=== PATIENT | male | born 1965 | race Caucasian/White ===

== ENCOUNTER 2020-07-23 10:32 | Day surgery (SDC) | payer BC, SELFPAY ==
[2020-07-16 17:49] VITALS: BMI 36.9
[2020-07-23 11:17] VITALS: BP 161/96; PULSE 68; RESP 18; TEMP 36.8; O2SAT 98
[2020-07-23] MEDS: Gentamicin Sulfate/NaCl 80 MG/100 ML PIGGYBACK 100 MG IV (11:57)
--- NOTE | 2020-07-23 12:16 | HO.ANESPROP2 ---
[facility] Past Medical History Medical History (Updated 07/16/20 @ 17:49 by Diane Acuna RN) Arthritis Atrial fibrillation Elevated cholesterol Hypertension Nephrolithiasis VONNIE (obstructive sleep apnea) Unstable angina Surgical History Surgical History (Updated 07/16/20 @ 17:29 by Diane Acuna RN) History of total right knee replacement (TKR) (2019) S/P cholecystectomy S/P left knee arthroscopy Social History Social History Smoking Status: Never smoker Second Hand Smoke Exposure: No Use of substances other than those prescribed or required for medical reasons: No Advance Directives: No Advance Directives Information Provided: No Advance Directives on File: No Recently lost weight without trying: No Meds Allergies Allergy/AdvReac Type Severity Reaction Status Date / Time No Known Allergies Allergy Unverified 03/29/20 16:31 [No Known Allergies*] pollen Allergy Unknown Uncoded 07/05/19 00:00 Home Medications Medication Instructions Recorded Confirmed Type amlodipine 10 mg PO DAILY 07/17/20 07/17/20 History irbesartan 300 mg PO DAILY 07/17/20 07/17/20 History metoprolol succinate 50 mg PO DAILY 07/17/20 07/17/20 History Exam Exam Date and Time: July 23, 2020 1216 Height,Weight and Vital Signs: Height 6 ft 1 in Weight 127.006 kg Last Vital Signs Temp 98.2 F 07/23/20 11:17 Pulse 68 07/23/20 11:17 Resp 18 07/23/20 11:17 BP 161/96 H 07/23/20 11:17 Pulse Ox 98 07/23/20 11:17 Airway Mallampati Class: II TM Dist: >3cm Neck ROM: Full Heart: RRR Lungs: CTA BL Assessment and Plan Assessment Anesthesia Assessment: Anesthesia Plan Discussed and Chart Reviewed Final Anesthetic Review NPO: Yes (Sip water with meds) ASA Class: III Final Preanesthetic Review: No Changes in Pt Med Stat and Consent Obtained/Reviewed Patient Risk: Intermediate Procedure Risk: Intermediate Anesthetic Plan Anesthetic Plan: MAC: Disposition: Standard PACU
[2020-07-23 13:12] VITALS: BP 111/62; PULSE 66; RESP 16; TEMP 36.6; O2SAT 93
--- NOTE | 2020-07-23 13:16 | PM.OP ---
Brief Operative Note Date of Service: 07/23/20 Pre-op diagnosis: Screening Post-op diagnosis: other (Diverticulosis, Small internal hemorrhoids) Procedure: Colonoscopy to cecum and TI Surgeon: Maxi Hooker Anesthesia: MAC Estimated blood loss (mL): 0 Pathology: none sent Condition: stable Disposition: PACU
[2020-07-23 13:27] VITALS: BP 113/65; PULSE 64; RESP 18; TEMP 37.1; O2SAT 98
--- NOTE | 2020-07-23 13:45 | HO.POSTANES ---
Post Anesthesia Evaluation Post Anesthesia Evaluation Vital Signs: Vital Signs Temp Pulse Resp BP Pulse Ox 07/23/20 13:27 98.7 F 64 18 113/65 98 07/23/20 13:12 97.8 F 66 16 111/62 93 07/23/20 11:17 98.2 F 68 18 161/96 H 98 Anesthesia: Monitored Mental Status: Awake Pain Control: Satisfactory Nausea/Vomiting: None Hydration: Adequate Anesthesia-Related Issues: No Anes. Related Issues
--- NOTE | 2020-07-23 17:31 | OP_ITS ---
SURGEON: Maxi Hooker MD INDICATIONS: The patient presents for evaluation of colorectal cancer screening. Full consent has been obtained from him for this, including risks of bleeding and perforation. PREOPERATIVE DIAGNOSIS: Colorectal cancer screening. POSTOPERATIVE DIAGNOSIS: PROCEDURE PERFORMED: Colonoscopy to cecum and terminal ileum. ESTIMATED BLOOD LOSS: COMPLICATIONS: ANESTHESIA: Monitored anesthesia care. ASSISTANTS: SPECIMENS: POSTOPERATIVE DIAGNOSES: Colorectal cancer screening, sigmoid diverticulosis, and internal hemorrhoids. DESCRIPTION OF PROCEDURE: The patient was placed in the left lateral decubitus position. The digital rectal exam revealed no abnormalities. The Olympus video pediatric colonoscope was entered into the rectum and advanced easily to the cecum. Once in the cecum, I did identify normal-appearing cecal pouch with appendiceal orifice and a normal-appearing ileocecal valve. The terminal ileum was cannulated and appeared normal. Scope was withdrawn back in the colon. The entire cecum and ileocecal valve appeared normal. The scope was then slowly withdrawn assessing all mucosal surfaces carefully. Preparation was excellent. I did not visualize any sign of polyps, colitis, or angiodysplasia. There was a mild amount of sigmoid diverticulosis. In the rectum, scope was retroflexed visualizing internal hemorrhoids, but no other pathology. The rectal mucosa appeared normal. The scope was straightened and withdrawn from the patient. He tolerated the procedure well and was returned to the recovery area in stable condition. IMPRESSION: Sigmoid diverticulosis and 2 small internal hemorrhoids. PLAN: Given the negative colonoscopy and negative family history, I would recommend a repeat colonoscopy in 10 years for further screening. He will otherwise see me on a p.r.n. basis. He did receive preprocedure antibiotics for prophylaxis in regard to his recent knee replacement and was given a prescription for amoxicillin to use later today. MD MARCELINO Quinteros/BRITTANY / [phone]
== END 2020-07-23 14:04 | disposition home or self-care (01) ==
PROVIDERS: PCP Internal Medicine; Visit Provider Internal Medicine
PROC: 0DJD8ZZ Inspection of Lower Intestinal Tract, Via Natural or Artificial Opening Endoscopic (ICD-10-PCS; CPT 45378; principal; 2020-07-23 12:00)
DX: Z12.11 Encounter for screening for malignant neoplasm of colon (principal); K57.30 Diverticulosis of large intestine without perforation or abscess without bleeding; K64.8 Other hemorrhoids; I10 Essential (primary) hypertension; G47.33 Obstructive sleep apnea (adult) (pediatric); Z90.49 Acquired absence of other specified parts of digestive tract; Z96.651 Presence of right artificial knee joint; Z99.89 Dependence on other enabling machines and devices; Z79.899 Other long term (current) drug therapy
CPT/HCPCS: 45378; J0290; J1580

== ENCOUNTER 2020-12-24 14:04 | Emergency (ER) | payer BC, SELFPAY ==
--- NOTE | ~2020-12-24 | CT_ITS ---
EXAMINATION: CT abdomen pelvis wo con CLINICAL INFORMATION: Reason for Exam r flank pain wioth hx of kidney stones COMPARISON: Prior study 2019 TECHNIQUE: Multidetector volumetric imaging was performed from the superior aspect of the liver through the pubic symphysis , noncontrasted study. Sagittal and coronal reformatted images were obtained on the technologist's workstation. This CT examination was performed using dose optimization techniques as appropriate, variously including the following: *Automated exposure control *Adjustment of mA and/or kV according to patient size (this includes techniques or standardized protocols for targeted exams where dose is matched to indication/reason for exam; i.e. extremities or head) *Use of iterative reconstruction technique DLP: 1000 mGy-cm FINDINGS: LOWER THORAX: Included lung bases are clear. HEPATOBILIARY: Heterogeneously hypodense liver probably hepatic steatosis. Evaluation of the liver is limited on noncontrasted study. GALLBLADDER: Gallbladder has been removed. SPLEEN: Spleen is enlarged 16 x 8 cm. PANCREAS: No focal mass or ductal dilatation. STOMACH AND GASTROINTESTINAL TRACT: Stomach is grossly unremarkable. There is no bowel distention or thickening. No CT evidence of appendicitis. ADRENALS: No adrenal nodules. KIDNEYS/URETERS: There is mild right renal hydronephrosis and hydroureter secondary to 3 mm stone lodged at the right ureterovesicular junction. Minimal perinephric fat stranding and haziness around the ureter might be obstructive uropathy. Versus nephritis. Left kidney is normal. There is additional 4 mm nonobstructing stone in the middle calyx right kidney. Cyst protruding from the middle pole left kidney measures 1.7 cm. URINARY BLADDER: Partially decompressed. PELVIC VISCERA: Unremarkable PERITONEUM: No free air or fluid. LYMPH NODES: No lymphadenopathy. VASCULAR:Abdominal aorta normal in size, no aneurysm found. BONES, ABDOMINAL WALL AND SOFT TISSUES: Age-appropriate changes of the spine and skeletal system, no destructive osteolytic or osteosclerotic bone lesion found CT/CT abdomen pelvis wo con IMPRESSION: 1. Mild to moderate right renal hydronephrosis and hydroureter secondary to 3 mm partially obstructing stone in the distal right ureter at the ureterovesicular junction. Minimal perinephric fat stranding and fat stranding around the ureter might be obstructive uropathy versus nephritis. 2. There is additional nonobstructing 4 mm stone middle calyx right kidney and a simple cyst left kidney. 3. Diffusely hypodense liver suggesting hepatic steatosis. 4. Splenomegaly. Spleen 16 cm.
[2020-12-24 14:54] VITALS: BP 148/68; PULSE 71; RESP 18; TEMP 36.8; O2SAT 96; BMI 36.9
[2020-12-24 15:44] VITALS: BP 166/92; PULSE 70; RESP 20; TEMP 36.5; O2SAT 97
[2020-12-24 15:48] LABS: Basophils Percent Auto 0.1 % (0-2); MANUAL DIFF FLAG SCAN; Mean Corpuscular HGB Conc 35.2 g/dl (31.0-36.0); Mean Corpuscular Hemoglobin 29.2 pg (27.0-33.0); PLT CLUMP 1; SCAN SMEAR FLAG 1
[2020-12-24 15:50] LABS: Eosinophils Absolute Auto 0.1 X10*3/uL (0.0-0.4); Glucose Urine UA NEG (NEG); Hematocrit 41.5 % (42-52); Hemoglobin 14.6 g/dl (14.0-18.0); Imm Gran Abs Auto 0.03 X10*3/uL (0.00-0.03); Imm Gran Pct Auto 0.3 % (0.0-0.4); Leukocyte Esterase Urine NEG (NEG); Lymphocytes Absolute Auto 1.1 X10*3/uL (1.2-4.9); Lymphocytes Percent Auto 12.2 % (20-40); Mean Platelet Volume 10.3 fL (9.4-12.4); Monocytes Absolute Auto 0.7 X10*3/uL (0.1-1.2); Monocytes Percent Auto 7.6 % (2-11); Neutrophils Absolute Auto 7.2 X10*3/uL (2.0-8.3); Neutrophils Percent Auto 78.8 % (45-73); Nitrite Urine NEG (NEG); Platelet Count 132 X10*3/uL (160-400); Red Cell Distribution Width 12.9 % (11.0-16.0); Specific Gravity - Urine <= 1.005 (1.005-1.025); Urine Blood 3+ (NEG); Urine Ketones NEG (NEG); Urine Protein NEG (NEG-TRACE); White Blood Count 9.1 X10*3/uL (4.8-10.8)
--- NOTE | 2020-12-24 15:50 | PC.NURSE ---
Pt alert and oriented, vss. Pt states he has hx if kidney stones and reports passing one last night however he is still having intense pain. Labs obtained, pt resting quietly, Daughter at bedside.
[2020-12-24 15:52] LABS: Appearance Urine CLEAR; Color Urine YELLOW
[2020-12-24 16:05] LABS: Anion Gap 14 (12-20); Blood Urea Nitrogen 23 mg/dL (9-16); Calcium 9.4 mg/dL (8.4-10.2); Carbon Dioxide 25 mmol/L (22-29); Chloride 104 mmol/L (96-108); Estimated Glomerular Filt Rate > 60; Glucose Random 92 mg/dL (60-115); Potassium 3.9 mmol/L (3.3-5.1); Sodium 139 mmol/L (135-145)
[2020-12-24 16:17] LABS: UACC CULT YES
--- NOTE | 2020-12-24 16:17 | ED_ITS ---
HPI - Male Genitourinary General Chief complaint: Urogenital-Male Stated complaint: kidney stones Time Seen by Provider: 12/24/20 15:42 Source: patient Mode of arrival: ambulatory Limitations: no limitations History of Present Illness HPI Narrative: Patient with history of kidney stone complaining of pain in the right flank area since yesterday off and on getting worse with nausea patient took Toradol and Flomax at home no hematuria no dysuria no fever or chills Related Data Home Medications Medication Instructions Recorded Confirmed amlodipine 10 mg PO DAILY 07/17/20 07/17/20 irbesartan 300 mg PO DAILY 07/17/20 07/17/20 metoprolol succinate 50 mg PO DAILY 07/17/20 07/17/20 Previous Rx's Medication Instructions Recorded oxycodone 5 mg PO Q6H PRN #20 tab 12/24/20 tamsulosin [Flomax] 0.4 mg PO DAILY #14 cap 12/24/20 Allergies Allergy/AdvReac Type Severity Reaction Status Date / Time No Known Allergies Allergy Unverified 03/29/20 16:31 [No Known Allergies*] pollen Allergy Unknown Uncoded 07/05/19 00:00 Review of Systems Review of Systems: Constitutional : No Weight loss, No Fever, No Chills ENT/Mouth : No sore throat, No Rhinorrhea Eyes: No Eye Pain, No Swelling Cardiovascular : No Chest Pain, no palpitations Respiratory : No Cough, No Sputum, no shortness of breath Gastrointestinal : +Nausea, No Vomiting, No Diarrhea, No abdominal Pain, no black stools Genitourinary : No Dysuria, No Urinary Frequency Musculoskeletal : No joint pain, No Myalgias, No Joint Swelling Skin : No Skin Lesions, No rash Neuro : No Weakness, No Numbness, No Dizziness, No Headache Psych : No Anxiety/Panic, No Depression Heme/Lymph: No Bruising, No Lymphadenopathy Endocrine : No Polyuria, No Polydipsia All other systems reviewed and are negative PMFSH Past Medical History Medical History Arthritis Atrial fibrillation Elevated cholesterol Hypertension Nephrolithiasis VONNIE (obstructive sleep apnea) Unstable angina Surgical History History of total right knee replacement (TKR) (2018) S/P cholecystectomy S/P left knee arthroscopy Social History Social History Second Hand Smoke Exposure: No Advance Directives: No Advance Directives Information Provided: Yes Physical Exam Vital Signs: Vital Signs: Last Vital Signs Temp 97.7 F 12/24/20 15:44 Pulse 72 12/24/20 17:16 Resp 18 12/24/20 17:16 BP 144/75 H 12/24/20 17:16 Pulse Ox 94 12/24/20 17:16 Body Mass Index 36.9 Appearance: Alert. Oriented X3. No acute distress. Eyes: PERRLA, No Nystagmus ENT: Pharynx normal. Oral Mucosa moist Neck: Normal inspection. Neck supple. CVS: Normal heart rate and rhythm. Pulses normal. Respiratory: No respiratory distress. Equal air entry bilateral, no wheezing/rales/rhonchi Abdomen: Soft and nontender. Bowel sounds are present, no mass palpable, R CVA tenderness ++ Skin: Skin warm and dry. Normal skin color. Normal skin turgor. Extremities: No lower extremity edema. No calf tenderness Neuro: Oriented X 3. No motor deficit. No sensory deficit MDM - Male Genitourinary MDM Narrative Medical decision making narrative: Patient with 3 mm right UVJ stone with moderate hydronephrosis patient feeling much better after morphine will disch arge patient home on oxycodone advised follow-up with urologist Lab Data Attestation: I reviewed the patient's lab results. Result diagrams: 12/24/20 15:38 12/24/20 15:38 Labs: Lab Results 12/24/20 12/24/20 12/24/20 Range/Units 15:38 15:38 15:38 WBC 9.1 (4.8-10.8) X10*3/uL RBC 5.00 (4.60-5.80) X10*6/uL Hgb 14.6 (14.0-18.0) g/dl Hct 41.5 L (42-52) % MCV 83.0 (80-98) fL MCH 29.2 (27.0-33.0) pg MCHC 35.2 (31.0-36.0) g/dl RDW 12.9 (11.0-16.0) % Plt Count 132 L (160-400) X10*3/uL MPV 10.3 (9.4-12.4) fL Immature Gran % (Auto) 0.3 (0.0-0.4) % Neut % (Auto) 78.8 H (45-73) % Lymph % (Auto) 12.2 L (20-40) % [place] % (Auto) 7.6 (2-11) % Eos % (Auto) 1.0 (0-4) % Baso % (Auto) 0.1 (0-2) % Lymph # (Auto) 1.1 L (1.2-4.9) X10*3/uL [place] # (Auto) 0.7 (0.1-1.2) X10*3/uL Eos # (Auto) 0.1 (0.0-0.4) X10*3/uL Baso # (Auto) 0.0 (0.0-0.2) X10*3/uL Abs Immat Gran (auto) 0.03 (0.00-0.03) X10*3/uL Absolute Neuts (auto) 7.2 (2.0-8.3) X10*3/uL Absolute Nucleated RBC 0.000 (0.0-0.012) X10*3/uL Nucleated RBC % (auto) 0.0 (0.0-0.2) /100WBC Smear Tech's Comments VERIFIED Sodium 139 (135-145) mmol/L Potassium 3.9 (3.3-5.1) mmol/L Chloride 104 (96-108) mmol/L Carbon Dioxide 25 (22-29) mmol/L Anion Gap 14 (12-20) BUN 23 H (9-16) mg/dL Creatinine 1.11 (0.5-1.4) mg/dL Estim Creat Clear Calc 105.0 Estimated GFR > 60 Random Glucose 92 (60-115) mg/dL Calcium 9.4 (8.4-10.2) mg/dL Urine Color YELLOW Urine Appearance CLEAR Urine pH 6.0 (5.0-8.0) Ur Specific [place] <= 1.005 (1.005-1.025) Urine Protein NEG (NEG-TRACE) MG/DL Urine Glucose (UA) NEG (NEG) MG/DL Urine Ketones NEG (NEG) MG/DL Urine Blood 3+ H (NEG) Urine Nitrite NEG (NEG) Ur Leukocyte Esterase NEG (NEG) Urine RBC 10-14 H (0) /HPF Urine WBC 5-9 H (0-4) /HPF Ur Squamous Epith Cells NONE /LPF Urine Bacteria NONE /LPF Discharge Plan Discharge Clinical Impression: Kidney stone on right side Patient Disposition: Home, Self-Care Instructions: Kidney Stones (ED) Additional Instructions: Drink plenty of fluids Take pain medication as advised and follow with urologist Prescriptions: New oxycodone 5 mg tablet 5 mg PO Q6H PRN (Reason: Pain, Moderate) Qty: 20 RF: 0 tamsulosin [Flomax] 0.4 mg capsule 0.4 mg PO DAILY Qty: 14 RF: 0 No Action metoprolol succinate 50 mg Tablet Extended Release 24 Hr 50 mg PO DAILY RF: 0 irbesartan 300 mg Tablet 300 mg PO DAILY RF: 0 amlodipine 10 mg Tablet 10 mg PO DAILY RF: 0 Referrals: Allen Yo MD [Physician] - 5 days
[2020-12-24 16:29] LABS: SLIDE REVIEW VERIFIED
[2020-12-24] MEDS: ondansetron HCL 4 MG/2 ML VIAL IVPUSH (17:07)
[2020-12-24] MEDS: Morphine Sulfate 4 MG/ML CARTRIDGE IVPUSH (17:07)
[2020-12-24 17:16] VITALS: BP 144/75; PULSE 72; RESP 18; O2SAT 94
[2020-12-24] MEDS: 0.9 % Sodium Chloride 1,000 ML 999 ML IVCONT (17:16)
[2020-12-24] MEDS: Morphine Sulfate 2 MG/ML CARTRIDGE IVPUSH (18:59)
== END 2020-12-24 20:00 | disposition home or self-care (01) ==
PROVIDERS: Emergency Provider Internal Medicine; PCP Internal Medicine
DX: N20.0 Calculus of kidney (principal)
CPT/HCPCS: 36415; 74176; 80048; 81001; 85025; 87086; 96361; 96374; 96375; 96376; 99284; J2270; J2405

== ENCOUNTER → 2021-01-01 15:39 | Outpatient (BNVA) | payer BC, SELFPAY | PROVIDERS: PCP Internal Medicine; Visit Provider Urology ==

== ENCOUNTER 2021-02-27 07:37 | Day surgery (SDC) | payer BC, SELFPAY ==
[2021-02-20 14:02] VITALS: BMI 36.9
[2021-02-20 15:24] VITALS: BMI 36.9
--- NOTE | 2021-02-26 09:36 | HO.ANESPROP2 ---
Documented by User: Leidy Todd NP 02/26/21 09:37 HPI - Anesthesia Eval Consult details Narrative: 55yo M for Right Lithotripsy ESW No previous ESWL on record PMFSH Active Problems Active Problems: All Active Problems (Updated 02/20/21 @ 15:07 by Peace Hernandez) Nephrolithiasis (Acute) Past Medical History Medical History (Updated 02/20/21 @ 15:07 by Pecae Hernandez RN) Arthritis COVID-19 vaccine series completed Elevated cholesterol HTN (hypertension) Nephrolithiasis On beta princess at home VNONIE (obstructive sleep apnea) Surgical History Surgical History History of total right knee replacement (TKR) Hx of colonoscopy S/P cholecystectomy S/P left knee arthroscopy Social History Social History Are you a primary foster care therapist to a significant other at home: No Do you presently have visiting nurse or other home services: No Patient Tobacco Use Status: Never used Tobacco Second Hand Smoke Exposure: No Use of substances other than those prescribed or required for medical reasons: No Have you been hit, kicked, punched, or otherwise hurt by someone within the past year? If so, by whom?: No Are you DNR?: No Advance Directives: No Advance Directives Information Provided: No Advance Directives on File: No Recently lost weight without trying: No Eating poorly because of decreased appetite: No Nutrition Risks: No Nutritional Risk Meds Allergies Allergy/AdvReac Type Severity Reaction Status Date / Time pollen Allergy Unknown Unknown Uncoded 02/20/21 13:07 Home Medications Medication Instructions Recorded Confirmed Last Taken Type amlodipine 10 mg tablet 10 mg PO DAILY 07/17/20 02/20/21 02/27/21 History irbesartan 300 mg tablet 300 mg PO DAILY 07/17/20 02/20/21 02/27/21 History metoprolol succinate 50 mg 50 mg PO DAILY 07/17/20 02/20/21 02/27/21 History tablet,extended release 24 hr Exam Exam Date and Time: February 26, 2021 0936 Height,Weight and Vital Signs: Height 6 ft 1 in Weight 127.006 kg Pertinent Lab Results Pertinent Lab Results: Laboratory Tests 12/24/20 12/24/20 15:38 15:38 WBC 9.1 Hgb 14.6 Hct 41.5 L Plt Count 132 L Sodium 139 Potassium 3.9 Chloride 104 Carbon Dioxide 25 BUN 23 H Creatinine 1.11 Assessment and Plan Assessment Anesthesia Assessment: Chart Reviewed Documented by User: Shanita Alvarez MD 02/27/21 10:07 [facility] Past Medical History Medical History (Updated 02/20/21 @ 15:07 by Peace Hernandez RN) Arthritis COVID-19 vaccine series completed Elevated cholesterol HTN (hypertension) Nephrolithiasis On beta princess at home VONNIE (obstructive sleep apnea) Functional capacity: independent ambulation Family History Family history of problems with anesthesia: No Surgical History Surgical History History of total right knee replacement (TKR) Hx of colonoscopy S/P cholecystectomy S/P left knee arthroscopy History of Problems with Anesthesia: No Social History Social History Are you a primary foster care therapist to a significant other at home: No Do you presently have visiting nurse or other home services: No Patient Tobacco Use Status: Never used Tobacco Second Hand Smoke Exposure: No Use of substances other than those prescribed or required for medical reasons: No Have you been hit, kicked, punched, or otherwise hurt by someone within the past year? If so, by whom?: No Are you DNR?: No Advance Directives: No Advance Directives Information Provided: No Advance Directives on File: No Recently lost weight without trying: No Eating poorly because of decreased appetite: No Nutrition Risks: No Nutritional Risk Meds Allergies Allergy/AdvReac Type Severity Reaction Status Date / Time pollen Allergy Unknown Unknown Uncoded 02/20/21 13:07 Home Medications Medication Instructions Recorded Confirmed Last Taken Type amlodipine 10 mg tablet 10 mg PO DAILY 07/17/20 02/20/21 02/27/21 History irbesartan 300 mg tablet 300 mg PO DAILY 07/17/20 02/20/21 02/27/21 History metoprolol succinate 50 mg 50 mg PO DAILY 07/17/20 02/20/21 02/27/21 History tablet,extended release 24 hr Exam Airway Mallampati Class: IV TM Dist: >3cm Neck ROM: Full Heart: RRR Lungs: CTA Assessment and Plan Final Anesthetic Review Family History of Problems with Anesthesia: No History of Problems with Anesthesia: No
[2021-02-27] VITALS (7 sets, daily range): BP systolic 112–154; BP diastolic 62–81; PULSE 57–67; RESP 16; TEMP 36.3; O2SAT 92–95
--- NOTE | ~2021-02-27 | XR_ITS ---
EXAMINATION: XR ABDOMEN KUB CLINICAL INDICATION: Nephrolithiasis. COMPARISON: Most recent CT abdomen/pelvis dated 12/24/2020 TECHNIQUE: AP views of the abdomen. FINDINGS: Multiple bilateral pelvic phleboliths are redemonstrated. The previously seen right ureterovesicular junction stone is not appreciated on plain radiographs. The previously seen right midpole renal stone is obscured by overlying bowel gas. Nonobstructive bowel gas pattern. Right upper quadrant surgical clips. No acute osseous abnormality. XR/XR KUB IMPRESSION: The previously seen right ureterovesicular junction stone is not appreciated on plain radiographs. Pelvic phleboliths appear unchanged. Previously seen right midpole renal stone obscured by overlying bowel gas.
[2021-02-27] MEDS: Lactated Ringers 1,000 ML 100 ML IVCONT (09:32)
[2021-02-27] MEDS: Acetaminophen 325 MG TABLET 650 MG PO (09:33)
--- NOTE | 2021-02-27 10:56 | MHC.SHP ---
Pre-Procedural Eval Section A Date of Service: 02/27/21 Section B Chief Complaint: kidney stone Details of Present Illness: right renal stone Relevant Social History: None Present Medications: see Short Stay Collaborative assessment Medical History: No relevant PMH Allergies: Allergies Allergy/AdvReac Type Severity Reaction Status Date / Time pollen Allergy Unknown Unknown Uncoded 02/20/21 13:07 Review of Systems Sugical H&P ROS: Negative: Constitution, Cardiovascular, Respiratory, Neurological, Psychiatric, Hem-Onc, Allergic/Immunologic, Gastrointestinal, Genitourinary, Musculoskeletal, Integumentary, Endocrine and Eyes/Ears/Nose/Throat Exam Surgical H&P Exam: Normal: HEENT, Normal: Heart, Normal: Lungs, Normal: Extremities, Normal: Abdomen, Normal: Skin and Normal: Neurological Plan Diagnosis/Plan: Unchanged (right ESWL) I have reviewed the history and physical and performed a pertinent physical examination on my patient. No changes have occurred unless specified.
--- NOTE | 2021-02-27 11:07 | W.PM.OPN ---
Operative Note Operative Note Date of Service: 02/27/21 Narrative: PreOperative Diagnosis: right Renal stones Post Operative Diagnosis: right Renal stones Procedure: right ESWL Surgeon: Dr Allen Yo Anesthesia: mac/sedation Indications for procedure: They understand ESWL may be a staged procedure and subsequent intervention may be required based on imaging after ESWL. They also understand there is a risk of bleeding, infection, damage to adjacent organs. 4 mm right side Procedure: After informed consent was verified the patient was brought to the operating room and placed in a supine position. Anesthesia was performed per protocol. Safety pause time-out was performed. Imaging was in the room and laterality confirmed. ESWL was performed. The 1st 500 shocks were performed at 60 hertz. These were performed with increasing power. Once maximum power was reached the rate was increased to 180 hertz. A total of 2500 shocks were given. Fluoroscopy showed stone disintegration. They tolerated procedure well and was transferred to the recovery area upon completion.
--- NOTE | 2021-02-27 13:28 | HO.POSTANES ---
Post Anesthesia Evaluation Post Anesthesia Evaluation Vital Signs: Vital Signs Temp Pulse Resp BP Pulse Ox 02/27/21 12:20 57 16 129/74 95 02/27/21 12:10 62 16 129/72 94 02/27/21 11:55 60 16 112/65 93 02/27/21 11:50 60 16 112/62 92 02/27/21 11:45 60 16 113/68 92 02/27/21 11:40 97.3 F 65 16 116/65 93 02/27/21 09:19 97.3 F 67 16 154/81 H 95 Anesthesia: General LMA Mental Status: Awake Pain Control: Satisfactory Nausea/Vomiting: None Hydration: Adequate Anesthesia-Related Issues: No Anes. Related Issues
== END 2021-02-27 12:50 | disposition home or self-care (01) ==
PROVIDERS: PCP Internal Medicine; Visit Provider Urology
PROC: (CPT 50590; principal; 2021-02-27 09:30)
DX: N20.0 Calculus of kidney (principal); Z87.442 Personal history of urinary calculi; I10 Essential (primary) hypertension; G47.33 Obstructive sleep apnea (adult) (pediatric); Z79.899 Other long term (current) drug therapy
CPT/HCPCS: 50590; 74018; J1100; J2250; J2405; J3010

== ENCOUNTER 2021-04-10 15:52 | Outpatient (REF) | payer BC, SELFPAY ==
--- NOTE | ~2021-04-10 | US_ITS ---
EXAMINATION: US RETROPERITONEAL LIMITED (RENAL ONLY) CLINICAL INFORMATION: Calculus of kidney. COMPARISON: KUB 02/27/2021. CT abdomen and pelvis 12/24/2020. TECHNIQUE: Real-time imaging of the kidneys. FINDINGS: RIGHT KIDNEY: 13.4 x 5.3 x 8.4 cm (SAG x AP x TRV). The kidney is normal in size, contour, and echogenicity. Renal cortical thickness is normal. There is a 2.1 x 1.5 x 1.4 cm cyst in the midpole. No renal calculi or hydronephrosis. The small stone in the upper pole the right kidney seen on CT December 2020 is not appreciated on ultrasound. LEFT KIDNEY: 13.7 x 6.8 x 6.6 cm (SAG x AP x TRV). The kidney is normal in size, contour, and echogenicity. Renal cortical thickness is normal. There is a 2.2 x 2.9 x 1.7 cm hypoechoic lesion in the lateral upper to mid left kidney. Differential would include a solid mass and complex cyst. Follow-up CT or MRI of the kidneys with and without contrast is recommended. No calculi. No hydronephrosis. The liver is echogenic. US/US renal BI IMPRESSION: No stone seen. 2.2 x 1.5 x 1.4 cm hypoechoic indeterminate lesion exophytic to the lateral upper to mid pole of the left kidney. It is uncertain whether this represents a solid lesion or complex cyst. CT or MRI of the kidneys with and without contrast is recommended. Small simple right renal cyst.
== END 2021-04-10 15:53 | disposition home or self-care (01) ==
LOC: HO.US 15:52
PROVIDERS: Visit Provider Urology
DX: N20.0 Calculus of kidney (principal)
CPT/HCPCS: 76775

== ENCOUNTER 2021-05-15 10:04 | Emergency (ER) | payer BC, SELFPAY ==
--- NOTE | ~2021-05-15 | CT_ITS ---
EXAMINATION: CT ANGIOGRAM CHEST CLINICAL INFORMATION: Chest pain radiating to back. Rule out dissection. COMPARISON: Previous CTA of the chest July 2014 and chest x-ray from earlier the same day TECHNIQUE: Multiple axial images were obtained through the chest after the administration of 70 mL of Omnipaque 350 intravenous contrast. Extensive vascular post-processing including two-dimensional and three-dimensional reformatted images were created and reviewed on an independent workstation. This CT examination was performed using dose optimization techniques as appropriate, variously including the following: *Automated exposure control *Adjustment of mA and/or kV according to patient size (this includes techniques or standardized protocols for targeted exams where dose is matched to indication/reason for exam; i.e. extremities or head) *Use of iterative reconstruction technique DLP: 460 mGy-cm FINDINGS: Evaluation of the ascending thoracic aorta is limited due to cardiac motion and streak artifact. The thoracic aorta is normal in caliber. No aneurysm or dissection is. The great vessel origins appear patent and normal in caliber. The heart is slightly enlarged. There is no pericardial effusion. There is mild coronary artery calcification. The pulmonary arteries appear patent. There is shotty mediastinal and bilateral hilar lymphadenopathy. No enlarged lymph nodes are seen. Thyroid gland is unremarkable. The lungs are clear. There is no pleural effusion or pneumothorax. No chest wall mass or enlarged axillary lymph nodes are seen. The liver may be low in attenuation. The liver appears enlarged. The spleen is slightly enlarged measuring 14 cm in length. There is a 1.5 cm enhancing lesion in the upper pole of the left kidney. Appearance is worrisome for neoplasm. The gallbladder has been removed. There are degenerative changes of the spine. Bony structures are otherwise unremarkable. CT/CT angio chest aorta IMPRESSION: Evaluation of the ascending thoracic aorta is slightly limited due to artifact from cardiac motion. No aneurysm or dissection seen. No pulmonary embolism. Slightly enlarged heart and mild coronary artery calcification. Shotty mediastinal and bilateral hilar lymphadenopathy. 1.5 cm enhancing left renal lesion worrisome for neoplasm. Hepatosplenomegaly. Probable fatty liver.
--- NOTE | ~2021-05-15 | XR_ITS ---
EXAMINATION: XR CHEST CLINICAL INFORMATION: Right-sided chest pain COMPARISON: Chest radiographs 03/05/2015, 07/26/2014 TECHNIQUE: 2 views of the chest were obtained. FINDINGS: There is no pneumothorax, pleural reaction, infiltrate, or effusion. The heart is normal in size. The vascularity is normal. The hilar and mediastinal contours are normal. No visible acute bony abnormality. XR/XR chest 2V IMPRESSION: Unremarkable examination.
--- NOTE | 2021-05-15 09:45 | ECG_ITS ---
Test Reason : CP Blood Pressure : / mmHG Vent. Rate : 085 BPM Atrial Rate : 085 BPM P-R Int : 188 ms QRS Dur : 096 ms QT Int : 368 ms P-R-T Axes : 062 044 064 degrees QTc Int : 437 ms Normal sinus rhythm Normal ECG No significant changes seen Referred By: Diane Hernandez Electronically Signed By:JOSSELYN CLARK MD
[2021-05-15 10:09] VITALS: BP 197/106; PULSE 84; RESP 18; TEMP 36.9; O2SAT 99; BMI 38.6
[2021-05-15 10:21] VITALS: BP 181/92; PULSE 81; RESP 21; O2SAT 98
[2021-05-15 10:37] LABS: MANUAL DIFF FLAG NO
[2021-05-15 10:40] LABS: Basophils Percent Auto 0.4 % (0-2); Eosinophils Absolute Auto 0.2 X10*3/uL (0.0-0.4); Eosinophils Percent Auto 2.9 % (0-4); Hematocrit 41.1 % (42.0-52.0); Hemoglobin 14.3 g/dl (14.0-18.0); Imm Gran Abs Auto 0.03 X10*3/uL (0.00-0.03); Imm Gran Pct Auto 0.6 % (0.0-0.4); Lymphocytes Absolute Auto 1.1 X10*3/uL (1.2-4.9); Lymphocytes Percent Auto 21.5 % (20-40); Mean Corpuscular HGB Conc 34.8 g/dl (31.0-36.0); Mean Corpuscular Hemoglobin 29.1 pg (27.0-33.0); Mean Corpuscular Volume 83.7 fL (80.0-98.0); Mean Platelet Volume 10.2 fL (9.4-12.4); Monocytes Absolute Auto 0.4 X10*3/uL (0.1-1.2); Monocytes Percent Auto 7.8 % (2-11); Neutrophils Absolute Auto 3.41 x10*3/uL (2.0-8.3); Neutrophils Percent Auto 66.8 % (45-73); Platelet Count 145 X10*3/uL (160-400); Red Blood Count 4.91 X10*6/uL (4.60-5.80); Red Cell Distribution Width 13.1 % (11.0-16.0); White Blood Count 5.1 X10*3/uL (4.8-10.8)
[2021-05-15 10:46] LABS: D Dimer 215 NG/ML
[2021-05-15 10:55] LABS: Anion Gap 11 (12-20); Blood Urea Nitrogen 18 mg/dL (9-16); Calcium 9.2 mg/dL (8.4-10.2); Carbon Dioxide 24 mmol/L (22-29); Chloride 108 mmol/L (96-108); Creatinine Clr Calc Pharmacy 134.8; Estimated Glomerular Filt Rate > 60; Glucose Random 130 mg/dL (60-115); Potassium 4.1 mmol/L (3.3-5.1); Sodium 139 mmol/L (135-145)
[2021-05-15 11:01] LABS: Troponin-I High Sensitivity 3.6 ng/L (<3.5-35.0)
[2021-05-15 11:16] LABS: Lipase 22 U/L (8-78); Magnesium 2.2 mg/dL (1.6-2.6)
--- NOTE | 2021-05-15 11:19 | ED.CHESTPAIN ---
HPI - Chest Pain General Chief Complaint: Chest Pain Stated Complaint: chest pain Time Seen by Provider: 05/15/21 10:45 Source: patient Mode of arrival: ambulatory History of Present Illness HPI narrative: 55-year-old male with a past medical history of arthritis, hyperlipidemia, HTN, renal stones, VONNIE, nephrolithiasis, to the ED complaining of right-sided midsternal/substernal chest pain x2 days radiating to back. Reports pain significantly worsened around 915 this morning after bending over/lifting something. Pain worse with movement. Denies fever, cough, SOB, LE edema, calf pain, abdominal pain, nausea/vomiting, numbness, tingling, weakness MD complaint: chest pain and chest discomfort Related Data Home Medications Medication Instructions Recorded Confirmed amlodipine 10 mg tablet 10 mg PO DAILY 07/17/20 02/20/21 irbesartan 300 mg tablet 300 mg PO DAILY 07/17/20 02/20/21 metoprolol succinate 50 mg 50 mg PO DAILY 07/17/20 02/20/21 tablet,extended release 24 hr Previous Rx's Medication Instructions Recorded tamsulosin 0.4 mg capsule (Flomax) 0.4 mg PO DAILY #14 cap 12/24/20 tamsulosin 0.4 mg capsule 0.4 mg PO BEDTIME 14 Days #14 cap 02/27/21 tramadol 50 mg tablet 50 mg PO Q6H PRN #14 tab 02/27/21 Allergies Allergy/AdvReac Type Severity Reaction Status Date / Time pollen Allergy Unknown Unknown Uncoded 02/20/21 13:07 Review of Systems Review of Systems: Constitutional: No Fever, No Chills, No Fatigue, No Malaise ENT/Mouth: No Ear Pain, No Nasal Congestion, No sore throat, No Rhinorrhea, No Swallowing Difficulty Eyes: No Eye Pain, No Swelling, No Redness, No Vision Changes Cardiovascular: + Chest Pain, No SOB, No Edema, No Palpitations Respiratory: No Cough, No Wheezing, No Dyspnea Gastrointestinal: No Nausea, No Vomiting, No Diarrhea, No Abdominal pain Genitourinary: No Dysuria, No Urinary Frequency, No Hematuria,No Flank Pain Musculoskeletal: No joint pain, No Myalgias, No Joint Swelling Skin: No Skin Lesions, No rash Neuro: No Weakness, No Numbness, No Dizziness, No Headache Yes all other systems are reviewed and are negative [facility] Past Medical History Attestation statement: The following information was validated with the patient. Medical History (Updated 05/15/21 @ 13:36 by ROXY Boykin) Arthritis COVID-19 vaccine series completed Elevated cholesterol HTN (hypertension) Kidney stones Nephrolithiasis On beta princess at home VONNIE (obstructive sleep apnea) Surgical History History of total right knee replacement (TKR) Hx of colonoscopy S/P cholecystectomy S/P left knee arthroscopy Social History Social History Are you a primary healthcare insurance sales agent to a significant other at home: No Do you presently have visiting nurse or other home services: No Patient Tobacco Use Status: Never used Tobacco Second Hand Smoke Exposure: No Use of substances other than those prescribed or required for medical reasons: No Advance Directives: No Advance Directives Information Provided: No Physical Exam Vital Signs: Vital Signs: Last Vital Signs Temp 98.5 F 05/15/21 10:09 Pulse 62 05/15/21 12:49 Resp 19 05/15/21 11:29 BP 136/79 05/15/21 12:49 Pulse Ox 97 05/15/21 11:29 Body Mass Index 38.6 Const: General: cooperative, healthy appearing and well developed Orientation/consciousness: patient oriented x3 Limitations: no limitations HENMT: Head: Yes normal to inspection Ears: hearing grossly normal bilaterally General nose exam: Normal external nose present Face and sinus: Yes normal facial exam Eyes: General: appearance normal, both eyes and all related structures EOM: EOMs intact bilaterally Neck: Neck: Yes normal visual inspection and Yes no meningeal signs Chest: Chest palpation & inspection: normal inspection of the chest and no crepitus Resp: Effort & Inspection: normal respiratory effort Auscultation: clear to auscultation bilaterally, no rales, no rhonchi and no wheezes Cardio: Rate: regular rate Heart sounds: S1 normal heart sound present and S2 normal heart sound present GI: Inspection: Yes normal to inspection Palpation (GI): Soft to palpation, nontender, no guarding and not rigid : General: Yes no CVA tenderness Back/Spine/Pelvis: Back: no CVA tenderness Skin: Rashes: no rashes Wounds: no wounds Neuro: General: patient oriented x3 and no meningeal signs Gait exam (Neuro): Normal gait present Extrem: General: Yes normal to inspection, Yes no pedal edema and Yes no calf tenderness Course Course Course Narrative: -1330--no leukocytosis. D-dimer negative. Labs otherwise unremarkable, initial troponin negative > will obtain 3 hour repeat -CXR unremarkable CT angio chest aorta IMPRESSION: Evaluation of the ascending thoracic aorta is slightly limited due to artifact from cardiac motion. No aneurysm or dissection seen. No pulmonary embolism. Slightly enlarged heart and mild coronary artery calcification. Shotty mediastinal and bilateral hilar lymphadenopathy. ? 1.5 cm enhancing left renal lesion worrisome for neoplasm. Hepatosplenomegaly. Probable fatty liver. >> results discussed with patient including needed follow-up with PCP/Urology for further testing outpatient concerning renal lesion -1332--repeat troponin equivocal, NE unlikely. Worrisome signs and symptoms and strict return precautions discussed with patient and at bedside, they verbalized understanding feel safe for discharge home at this time MDM - Chest Pain MDM Narrative Medical decision making narrative: 55-year-old male with a past medical history of arthritis, hyperlipidemia, HTN, renal stones, VONNIE, nephrolithiasis, to the ED complaining of right-sided midsternal/substernal chest pain x2 days radiating to back. On exam hypertensive, initially in pain, improved on my evaluation, pain not reproducible, lungs CTA, abdomen soft/nontender, no pedal edema. Concern for ACS vs PE vs dissection. Lower concern for pneumonia or cholecystitis/lithiasis/pancreatitis Plan: EKG, labs, CXR, D-dimer, CT chest for dissection, re-evaluate Medical Records Data Attestation: I reviewed the patient's medical records. Lab Data Attestation: I reviewed the patient's lab results. Result diagrams: 05/15/21 10:34 05/15/21 10:34 Labs: Lab Results 05/15/21 05/15/21 05/15/21 Range/Units 10:34 10:34 10:34 WBC 5.1 (4.8-10.8) X10*3/uL RBC 4.91 (4.60-5.80) X10*6/uL Hgb 14.3 (14.0-18.0) g/dl Hct 41.1 L (42.0-52.0) % MCV 83.7 (80.0-98.0) fL MCH 29.1 (27.0-33.0) pg MCHC 34.8 (31.0-36.0) g/dl RDW 13.1 (11.0-16.0) % Plt Count 145 L (160-400) X10*3/uL MPV 10.2 (9.4-12.4) fL Immature Gran % (Auto) 0.6 H (0.0-0.4) % Neut % (Auto) 66.8 (45-73) % Lymph % (Auto) 21.5 (20-40) % [place] % (Auto) 7.8 (2-11) % Eos % (Auto) 2.9 (0-4) % Baso % (Auto) 0.4 (0-2) % Lymph # (Auto) 1.1 L (1.2-4.9) X10*3/uL [place] # (Auto) 0.4 (0.1-1.2) X10*3/uL Eos # (Auto) 0.2 (0.0-0.4) X10*3/uL Baso # (Auto) 0.0 (0.0-0.2) X10*3/uL Abs Immat Gran (auto) 0.03 (0.00-0.03) X10*3/uL Absolute Neuts (auto) 3.41 (2.0-8.3) x10*3/uL Absolute Nucleated RBC 0.000 (0.0-0.012) X10*3/uL Nucleated RBC % (auto) 0.0 (0.0-0.2) /100WBC D-Dimer 215 NG/ML Sodium 139 (135-145) mmol/L Potassium 4.1 (3.3-5.1) mmol/L Chloride 108 (96-108) mmol/L Carbon Dioxide 24 (22-29) mmol/L Anion Gap 11 L (12-20) BUN 18 H (9-16) mg/dL Creatinine 0.86 (0.5-1.4) mg/dL Estim Creat Clear Calc 134.8 Estimated GFR > 60 Random Glucose 130 H D (60-115) mg/dL Calcium 9.2 (8.4-10.2) mg/dL Magnesium 2.2 (1.6-2.6) mg/dL Troponin I High Sens (<3.5-35.0) ng/L Lipase 22 (8-78) U/L 05/15/21 Range/Units 10:34 WBC (4.8-10.8) X10*3/uL RBC (4.60-5.80) X10*6/uL Hgb (14.0-18.0) g/dl Hct (42.0-52.0) % MCV (80.0-98.0) fL MCH (27.0-33.0) pg MCHC (31.0-36.0) g/dl RDW (11.0-16.0) % Plt Count (160-400) X10*3/uL MPV (9.4-12.4) fL Immature Gran % (Auto) (0.0-0.4) % Neut % (Auto) (45-73) % Lymph % (Auto) (20-40) % [place] % (Auto) (2-11) % Eos % (Auto) (0-4) % Baso % (Auto) (0-2) % Lymph # (Auto) (1.2-4.9) X10*3/uL [place] # (Auto) (0.1-1.2) X10*3/uL Eos # (Auto) (0.0-0.4) X10*3/uL Baso # (Auto) (0.0-0.2) X10*3/uL Abs Immat Gran (auto) (0.00-0.03) X10*3/uL Absolute Neuts (auto) (2.0-8.3) x10*3/uL Absolute Nucleated RBC (0.0-0.012) X10*3/uL Nucleated RBC % (auto) (0.0-0.2) /100WBC D-Dimer NG/ML Sodium (135-145) mmol/L Potassium (3.3-5.1) mmol/L Chloride (96-108) mmol/L Carbon Dioxide (22-29) mmol/L Anion Gap (12-20) BUN (9-16) mg/dL Creatinine (0.5-1.4) mg/dL Estim Creat Clear Calc Estimated GFR Random Glucose (60-115) mg/dL Calcium (8.4-10.2) mg/dL Magnesium (1.6-2.6) mg/dL Troponin I High Sens 3.6 (<3.5-35.0) ng/L Lipase (8-78) U/L ECG Data ECG #1: Attestation: I personally reviewed and interpreted this ECG as follows: ECG interpretation date: 05/15/21 ECG interpretation time: 10:17 Prior ECG tracings: not available for review Interpretation: EKG normal sinus rhythm with a rate of 85. [place] interval 180. QRS 96. QTC 437. Nonischemic/no STEMI Critical Care Time Critical Care Time Critical Care Time: Yes Total Critical Care Time: 36 Attestation: Greater than 35 minutes of critical care time was spent evaluating patient, reviewing chart, reviewing labs/imaging, and re-evaluating patient Discharge Plan Discharge Clinical Impression: Kidney lesion Chest pain Qualifiers: Chest pain type: unspecified Qualified Code(s): R07.9 - Chest pain, unspecified Patient Disposition: Home, Self-Care Instructions: Chest Pain (ED) Additional Instructions: Your blood work was reassuring today in the emergency department Your CT scan does show a left renal lesion which is worrisome for neoplasm, you need to have this further worked up starting with her primary care doctor, you may also follow-up with Urology If your chest pain persists, worsens, develops shortness of breath, fever, chills, cough, swelling in your legs return to the ED immediately Prescriptions: No Action metoprolol succinate 50 mg Tablet Extended Release 24 Hr 50 mg PO DAILY RF: 0 irbesartan 300 mg Tablet 300 mg PO DAILY RF: 0 amlodipine 10 mg Tablet 10 mg PO DAILY RF: 0 tramadol 50 mg tablet 50 mg PO Q6H PRN (Reason: pain (scale score 4-6)) Qty: 14 RF: 0 tamsulosin 0.4 mg capsule 0.4 mg PO BEDTIME 14 Days Qty: 14 RF: 0 tamsulosin [Flomax] 0.4 mg capsule 0.4 mg PO DAILY Qty: 14 RF: 0 Referrals: Zaheer Howard MD [Primary Care Provider] - 2 days Allen Yo MD [Physician] - 3 days
[2021-05-15 11:29] VITALS: BP 147/76; PULSE 70; RESP 19; O2SAT 97
[2021-05-15] MEDS: iohexoL 350 MG/ML 100 ML INFUS..BTL IV (11:59)
[2021-05-15 12:49] VITALS: BP 136/79; PULSE 62
[2021-05-15 13:28] LABS: Troponin-I High Sensitivity < 3.5 ng/L (<3.5-35.0)
== END 2021-05-15 14:07 | disposition home or self-care (01) ==
PROVIDERS: Physician Assistant; Emergency Provider Emergency Medicine; PCP Internal Medicine
DX: R07.9 Chest pain, unspecified (principal); N28.9 Disorder of kidney and ureter, unspecified; I10 Essential (primary) hypertension; Z79.899 Other long term (current) drug therapy; Z87.442 Personal history of urinary calculi
CPT/HCPCS: 36415; 71046; 71275; 80048; 83690; 83735; 84484; 85025; 85379; 93005; 99284; 99291; Q9967

== ENCOUNTER 2021-08-17 07:16 | Outpatient (REF) | payer OTHER, SELFPAY ==
[2021-08-17 07:35] LABS: MANUAL DIFF FLAG NO
[2021-08-17 07:41] LABS: Basophils Percent Auto 0.2 % (0-2); Eosinophils Absolute Auto 0.1 X10*3/uL (0.0-0.4); Eosinophils Percent Auto 2.8 % (0-4); Hematocrit 43.2 % (42.0-52.0); Hemoglobin 14.7 g/dl (14.0-18.0); Lymphocytes Percent Auto 22.8 % (20-40); Mean Corpuscular Hemoglobin 28.3 pg (27.0-33.0); Mean Corpuscular Volume 83.1 fL (80.0-98.0); Mean Platelet Volume 10.3 fL (9.4-12.4); Monocytes Absolute Auto 0.4 X10*3/uL (0.1-1.2); Monocytes Percent Auto 8.6 % (2-11); Neutrophils Absolute Auto 2.8 x10*3/uL (2.0-8.3); Neutrophils Percent Auto 65.6 % (45-73); Platelet Count 142 X10*3/uL (160-400); Red Cell Distribution Width 13.1 % (11.0-16.0); White Blood Count 4.3 X10*3/uL (4.8-10.8)
[2021-08-17 07:51] LABS: Estimated Average Glucose 108 mg/dL; Hemoglobin A1c % 5.4 %
[2021-08-17 08:24] LABS: Alanine Aminotransferase 42 U/L (0-40); Albumin Level 4.6 g/dL (3.5-5.0); Alkaline Phosphatase 68 U/L (39-117); Anion Gap 13 (12-20); Aspartate Amino Transferase 25 U/L (5-37); Bilirubin Total 1.2 mg/dL (0.0-1.0); Blood Urea Nitrogen 18 mg/dL (9-16); Calcium 9.2 mg/dL (8.4-10.2); Carbon Dioxide 23 mmol/L (22-29); Chloride 109 mmol/L (96-108); Cholesterol 156 mg/dL; Estimated Glomerular Filt Rate > 60; Glucose Fasting 115 mg/dL (60-99); HDL Cholesterol 39 mg/dL; LDL Cholesterol Calculated 99 mg/dl; Potassium 3.7 mmol/L (3.3-5.1); Sodium 141 mmol/L (135-145); Total Protein 7.6 g/dL (6.5-8.0); Triglycerides 92 mg/dL
[2021-08-17 08:43] LABS: Prostate Specific Antigen 0.98 ng/mL (<0.05-4.0)
[2021-08-17 09:27] LABS: Appearance Urine CLEAR; Color Urine YELLOW; Glucose Urine UA NEG (NEG); Leukocyte Esterase Urine NEG (NEG); Nitrite Urine NEG (NEG); PH 5.5 (5.0-8.0); Specific Gravity - Urine >= 1.030 (1.005-1.025); Urine Blood NEG (NEG); Urine Ketones NEG (NEG); Urine Protein NEG (NEG-TRACE)
[2021-08-17 09:52] LABS: Microalbum/Creatinine Ratio Ur 49.4 ug/mg cr
== END 2021-08-17 07:17 | disposition home or self-care (01) ==
LOC: HO.LAB 07:16
PROVIDERS: PCP Internal Medicine; Visit Provider Internal Medicine
DX: Z00.00 Encounter for general adult medical examination without abnormal findings (principal); R73.03 Prediabetes; Z12.5 Encounter for screening for malignant neoplasm of prostate
CPT/HCPCS: 36415; 80053; 80061; 81003; 82043; 83036; 84153; 85025

== ENCOUNTER → 2021-12-13 11:09 | Outpatient (BNVA) | payer OTHER, SELFPAY | PROVIDERS: PCP Internal Medicine; Visit Provider Urology | DX: Z13.89 Encounter for screening for other disorder (principal) ==

== ENCOUNTER 2021-12-30 16:31 | Outpatient (REF) | payer OTHER, SELFPAY ==
--- NOTE | ~2021-12-30 | MR_ITS ---
EXAMINATION: MR KIDNEY WITH AND WITHOUT CONTRAST CLINICAL INFORMATION: Renal mass COMPARISON: Previous CTA of the chest May 2021, renal ultrasound March [address] of the abdomen and pelvis most recent December 2020 TECHNIQUE: Sagittal axial and coronal sequences through the abdomen with and without contrast. The patient received 10 mL intravenous Gadavist contrast. FINDINGS: There is a 1.5 cm lesion exophytic to the lateral midpole of the left kidney. This is low signal on T1-weighted sequences, heterogeneous signal on T2-weighted sequences and demonstrates enhancement following gadolinium. This is suggestive of a solid enhancing renal lesion or mass. There is a 5 mm cyst in the upper pole of the left kidney. There are several right renal cysts, largest measuring 1 cm in the midpole. No hydronephrosis. The liver is low in attenuation suggestive of fatty infiltration. The liver is upper normal in size, right lobe measuring 19.5 cm in length. The liver is normal in contour. No focal liver lesion. The gallbladder has been removed. No biliary duct dilatation. The spleen is upper normal in size measuring 13 cm in length. The spleen is otherwise normal. The pancreas is normal. The adrenal glands are normal. There is mild diverticulosis of the colon. Small and large bowel is otherwise normal. There is a circumaortic left renal vein. Vascular structures are otherwise normal. No adenopathy is seen. No ascites. No hernia is seen. There is degenerative disc disease of the spine. MR/MR kidney wo/w con IMPRESSION: 1.5 cm left renal mass. Bilateral renal cysts. Fatty liver. Upper normal-size liver and spleen.
== END 2021-12-30 16:32 | disposition home or self-care (01) ==
LOC: HO.MRI 16:31
PROVIDERS: Visit Provider Urology
DX: C64.9 Malignant neoplasm of unspecified kidney, except renal pelvis (principal)
CPT/HCPCS: 74181; A9585

== ENCOUNTER 2022-05-06 15:06 | Outpatient (REF) | payer OTHER, SELFPAY ==
[2022-05-06 16:15] LABS: Hematocrit 43.1 % (42.0-52.0); Hemoglobin 14.9 g/dl (14.0-18.0); Mean Corpuscular HGB Conc 34.6 g/dl (31.0-36.0); Mean Corpuscular Hemoglobin 28.7 pg (27.0-33.0); Mean Platelet Volume 10.4 fL (9.4-12.4); Platelet Count 156 X10*3/uL (160-400); Red Blood Count 5.19 X10*6/uL (4.60-5.80); White Blood Count 6.2 X10*3/uL (4.8-10.8)
[2022-05-06 16:22] LABS: Prothrombin Time 11.4 SEC (10.0-13.1)
[2022-05-06 16:42] LABS: Anion Gap 15 (12-20); Blood Urea Nitrogen 24 mg/dL (9-16); Calcium 9.7 mg/dL (8.4-10.2); Carbon Dioxide 26 mmol/L (22-29); Chloride 107 mmol/L (96-108); Estimated Glomerular Filt Rate > 60; Glucose Random 90 mg/dL (60-115); Potassium 4.1 mmol/L (3.3-5.1); Sodium 144 mmol/L (135-145)
== END 2022-05-06 15:07 | disposition home or self-care (01) ==
LOC: HO.LAB 15:06
PROVIDERS: PCP Internal Medicine; Visit Provider Urology
DX: C64.9 Malignant neoplasm of unspecified kidney, except renal pelvis (principal); R39.15 Urgency of urination
CPT/HCPCS: 36415; 80048; 85027; 85610

== ENCOUNTER 2022-05-08 11:55 | Day surgery (SDC) | payer OTHER, SELFPAY ==
--- NOTE | 2022-05-07 11:07 | P.CONAN_ITS ---
Documented by User: Leidy Todd NP 05/07/22 11:08 HPI - Anesthesia Eval Consult details Narrative: 56yo M for Left Kidney Cryo-Ablation PMFSH Active Problems Active Problems: All Active Problems (Updated 01/14/22 @ 14:34 by Allen Yo MD) Renal cancer (Acute) Nephrolithiasis (Acute) Past Medical History Medical History Arthritis COVID-19 vaccine series completed Elevated cholesterol HTN (hypertension) Kidney stones Nephrolithiasis On beta princess at home VONNIE (obstructive sleep apnea) Family History Family history of problems with anesthesia: No Surgical History Surgical History History of total right knee replacement (TKR) Hx of colonoscopy S/P cholecystectomy S/P left knee arthroscopy History of Problems with Anesthesia: No Social History Social History Are you a primary rn intensive care unit to a significant other at home: No Do you presently have visiting nurse or other home services: No Patient Tobacco Use Status: Never used Tobacco Second Hand Smoke Exposure: No Advance Directives: No Advance Directives Information Provided: Yes Meds Allergies Allergy/AdvReac Type Severity Reaction Status Date / Time pollen Allergy Unknown Unknown Uncoded 02/20/21 13:07 Home Medications Medication Instructions Recorded Confirmed Last Taken Type amlodipine 10 mg tablet 10 mg PO DAILY 07/17/20 12/13/21 02/27/21 History irbesartan 300 mg tablet 300 mg PO DAILY 07/17/20 12/13/21 02/27/21 History metoprolol succinate 50 mg 50 mg PO DAILY 07/17/20 12/13/21 02/27/21 History tablet,extended release 24 hr Exam Exam Date and Time: May 07, 2022 110 Pertinent Lab Results Pertinent Lab Results: Laboratory Tests 05/06/22 05/06/22 15:26 15:26 WBC 6.2 Hgb 14.9 Hct 43.1 Plt Count 156 L Sodium 144 Potassium 4.1 Chloride 107 Carbon Dioxide 26 BUN 24 H Creatinine 0.88 Assessment and Plan Assessment Anesthesia Assessment: Chart Reviewed Final Anesthetic Review Family History of Problems with Anesthesia: No History of Problems with Anesthesia: No Documented by User: Jennifer Sarabia MD 05/08/22 13:02 PMFSH Past Medical History Medical History Arthritis COVID-19 vaccine series completed Elevated cholesterol HTN (hypertension) Kidney stones Nephrolithiasis On beta princess at home VONNIE (obstructive sleep apnea) Surgical History Surgical History History of total right knee replacement (TKR) Hx of colonoscopy S/P cholecystectomy S/P left knee arthroscopy Social History Social History Are you a primary rn intensive care unit to a significant other at home: No Do you presently have visiting nurse or other home services: No Patient Tobacco Use Status: Never used Tobacco Second Hand Smoke Exposure: No Advance Directives: No Advance Directives Information Provided: Yes Meds Allergies Allergy/AdvReac Type Severity Reaction Status Date / Time pollen Allergy Unknown Unknown Uncoded 02/20/21 13:07 Home Medications Medication Instructions Recorded Confirmed Last Taken Type amlodipine 10 mg tablet 10 mg PO DAILY 07/17/20 12/13/21 02/27/21 History irbesartan 300 mg tablet 300 mg PO DAILY 07/17/20 12/13/21 02/27/21 History metoprolol succinate 50 mg 50 mg PO DAILY 07/17/20 12/13/21 02/27/21 History tablet,extended release 24 hr Exam Airway Mallampati Class: III TM Dist: >3cm Neck ROM: Full Partial: Lower Loose/Missing/Broken Teeth: Yes and Lower Heart: RRR Lungs: CTA Assessment and Plan Assessment Anesthesia Assessment: Anesthesia Plan Discussed Final Anesthetic Review NPO: Yes ASA Class: III Final Preanesthetic Review: Meds/Allgs Chart Reviewed, Consent Obtained/Reviewed and Anes Risks/Benef Reviewed Patient Risk: Intermediate Procedure Risk: Low Anesthetic Plan Anesthetic Plan: MAC: Disposition: Standard PACU
--- NOTE | ~2022-05-08 | CT_ITS ---
PROCEDURE: CT GUIDED BIOPSY, KIDNEY CLINICAL INFORMATION: Left renal mass. COMPARISON: Previous MR of the kidneys 12/2021 and renal ultrasound 03/2021. TECHNIQUE: CT-guided renal biopsy and cryoablation procedure and risks including bleeding, infection, injury to the adjacent organs in the kidney were discussed with the patient and informed consent was obtained. The patient was positioned in the right decubitus position. Limited axial images through the kidneys were performed. The left flank was prepped and draped in the usual sterile fashion. The skin and soft tissues were anesthetized with 1% lidocaine plain. Using a 19-gauge coaxial needle, needle was positioned in the left perinephric fat. 40 mL of saline was injected for hydrodissection to displace the left colon. Subsequently, coaxial needle was positioned in the left renal mass. Single 20-gauge core biopsy was obtained. Subsequently, 2-gauge 17.5 cm cryoablation ice muna probes were positioned in the left renal mass. Two 10 minute freeze followed by 5 minute thaw cycles were performed. Imaging was performed during the freeze thaw cycles. This demonstrated adequate ice ball and obscured targeted renal mass. Cryoablation probes were removed and follow up imaging of the left kidney was performed. Anesthesia was provided by the anesthesia department. Patient received 2 g of IV Kefzol. This CT examination was performed using dose optimization techniques as appropriate, variously including the following: *Automated exposure control *Adjustment of mA and/or kV according to patient size (this includes techniques or standardized protocols for targeted exams where dose is matched to indication/reason for exam; i.e. extremities or head) *Use of iterative reconstruction technique DLP: 1340 mGy-cm FINDINGS: There is a 1.8 x 2 cm left renal mass that was targeted for biopsy and cryoablation. Images demonstrate adequate ice ball obscuring the targeted lesion. No hemorrhage. CT/CT guided ablation renal IMPRESSION: CT-guided left renal mass biopsy and cryoablation.
[2022-05-08 12:24] VITALS: BP 163/92; PULSE 67; RESP 16; TEMP 36.4; O2SAT 97; BMI 36.9
[2022-05-08 12:33] LABS: MANUAL DIFF FLAG NO
[2022-05-08 12:37] LABS: Basophils Percent Auto 0.3 % (0-2); Eosinophils Absolute Auto 0.1 X10*3/uL (0.0-0.4); Eosinophils Percent Auto 2.2 % (0-4); Hematocrit 44.5 % (42.0-52.0); Hemoglobin 15.4 g/dl (14.0-18.0); Imm Gran Abs Auto 0.01 X10*3/uL (0.00-0.03); Imm Gran Pct Auto 0.2 % (0.0-0.4); Lymphocytes Absolute Auto 1.7 X10*3/uL (1.2-4.9); Lymphocytes Percent Auto 27.4 % (20-40); Mean Corpuscular HGB Conc 34.6 g/dl (31.0-36.0); Mean Corpuscular Hemoglobin 28.9 pg (27.0-33.0); Mean Corpuscular Volume 83.6 fL (80.0-98.0); Mean Platelet Volume 10.1 fL (9.4-12.4); Monocytes Absolute Auto 0.5 X10*3/uL (0.1-1.2); Neutrophils Absolute Auto 3.9 x10*3/uL (2.0-8.3); Neutrophils Percent Auto 61.9 % (45-73); Platelet Count 149 X10*3/uL (160-400); Red Blood Count 5.32 X10*6/uL (4.60-5.80); Red Cell Distribution Width 12.9 % (11.0-16.0); White Blood Count 6.4 X10*3/uL (4.8-10.8)
[2022-05-08 12:47] LABS: Prothrombin Time 11.6 SEC (10.0-13.1)
[2022-05-08 12:50] LABS: Partial Thromboplastin Time 35.4 SEC (26.0-36.4)
[2022-05-08 16:47] VITALS: BP 151/84; PULSE 65; RESP 18; TEMP 36.8; O2SAT 98
--- NOTE | 2022-05-08 16:49 | HO.RADPN ---
RADIOLOGY Narrative Narrative: CT guided left renal mass biopsy and cryoablation . One 20 g core biopsy. 2 17g17.5 cm length Icerod cryoablation probes placed in left renal mass with adequate iceball . Hydrodissection using 40 ml NS done to protect colon. No complication.
[2022-05-08 17:02] VITALS: BP 144/87; PULSE 59; RESP 16; O2SAT 99
[2022-05-08 17:17] VITALS: BP 151/87; PULSE 59; RESP 17; O2SAT 99
[2022-05-08] MEDS: ondansetron HCL 4 MG/2 ML VIAL IVPUSH (17:28)
[2022-05-08 17:30] VITALS: BP 144/87; PULSE 59; RESP 18; TEMP 36.2; O2SAT 98
[2022-05-08] MEDS: Acetaminophen 325 MG TABLET 650 MG PO (17:32)
[2022-05-08] MEDS: oxyCODONE HCl Immed Release 5 MG TABLET PO (17:33)
[2022-05-08] MEDS: Lidocaine HCl 1 % MPF 30 ML VIAL 10 ML SUBCUT (17:40)
== END 2022-05-08 17:59 | disposition home or self-care (01) ==
PROVIDERS: Radiology Diagnostic Radiology; PCP Internal Medicine; Visit Provider Urology
DX: C64.2 Malignant neoplasm of left kidney, except renal pelvis (principal); N20.0 Calculus of kidney; I10 Essential (primary) hypertension; G47.33 Obstructive sleep apnea (adult) (pediatric); E78.00 Pure hypercholesterolemia, unspecified
CPT/HCPCS: 36415; 50200; 50593; 77012; 77013; 85025; 85610; 85730; 88305; C2618; J0690; J2250; J2405; J3010

== ENCOUNTER 2022-08-13 15:38 | Outpatient (REF) | payer OTHER, SELFPAY ==
--- NOTE | ~2022-08-13 | CT_ITS ---
EXAMINATION: CT ABDOMEN WITHOUT AND WITH CONTRAST CLINICAL INFORMATION: Malignant neoplasm of kidney. COMPARISON: Renal MRI 12/30/2021. CT-guided ablation 05/08/2022, CT angiogram of the chest 05/15/2021. TECHNIQUE: Contiguous axial thin section helical images of the abdomen were performed before and after the administration of oral contrast and 85 mL of Omnipaque 350 intravenous contrast. The data set was reformatted in the coronal and sagittal planes and reviewed on an independent workstation. This CT examination was performed using dose optimization techniques as appropriate, variously including the following: *Automated exposure control *Adjustment of mA and/or kV according to patient size (this includes techniques or standardized protocols for targeted exams where dose is matched to indication/reason for exam; i.e. extremities or head) *Use of iterative reconstruction technique DLP: 2476 mGy-cm FINDINGS: LUNG BASES: The visualized lung bases are unremarkable. No evidence of pulmonary metastases, pleural effusions or infiltrates. LIVER, GALLBLADDER, AND BILIARY TREE: The liver is enlarged measuring 20 cm in cephalocaudad dimension and demonstrates decreased attenuation consistent with hepatic steatosis. No focal hepatic lesion or biliary ductal dilatation is present. Status post cholecystectomy. PANCREAS: Unremarkable. SPLEEN: There is splenomegaly with the spleen measuring 14.9 cm in greatest length. ADRENAL GLANDS: Unremarkable. KIDNEYS AND URETERS: Right: 2 benign Bosniak class I right renal cysts are present. Some parapelvic cysts which are benign are present as well. These benign cysts need no additional imaging or follow up. No suspicious solid renal masses. No nephrocalcinosis. No hydronephrosis. Left: Ablation defect in the left mid kidney is seen. No evidence of enhancing tissue with remnant soft tissue density measuring 17 Hounsfield units on noncontrast and 20 Hounsfield units after IV contrast. There is a tiny 5 mm hypodensity seen in the upper pole of the left kidney consistent with a benign Bosniak class I cyst better characterized on the prior MRI because of its small size. No additional imaging or follow up is necessary. No worrisome renal masses are present at this time. No nephrolithiasis. No hydronephrosis. The visualized ureter is unremarkable. GASTROINTESTINAL TRACT: Visualized bowel unremarkable. ABDOMINAL WALL: No significant hernia is appreciated. Single surgical clip noted behind the right anterior abdominal wall. LYMPH NODES: No retroperitoneal lymphadenopathy. VASCULAR: Unremarkable. OSSEOUS STRUCTURES: Mild degenerative changes are present in the spine. No bony destructive lesions. CT/CT abdomen wo/w IV con IMPRESSION: 1. Ablation defect left kidney with no evidence of residual or recurrent disease. 2. Incidental note made of an enlarged fatty liver and mild splenomegaly. Fleischner guidelines were followed.
[2022-08-13] MEDS: iohexoL 350 MG/ML 100 ML INFUS..BTL 85 ML IV (16:52)
== END 2022-08-13 15:39 | disposition home or self-care (01) ==
LOC: HO.CT 15:38
PROVIDERS: PCP Internal Medicine; Visit Provider Urology
DX: C64.9 Malignant neoplasm of unspecified kidney, except renal pelvis (principal)
CPT/HCPCS: 74170; Q9967

== ENCOUNTER 2023-08-08 07:15 | Outpatient (REF) | payer OTHER, SELFPAY ==
[2023-08-08 07:41] LABS: MANUAL DIFF FLAG NO
[2023-08-08 09:27] LABS: Basophils Percent Auto 0.6 % (0-2); Eosinophils Absolute Auto 0.2 X10*3/uL (0.0-0.4); Eosinophils Percent Auto 3.4 % (0-4); Hematocrit 44.1 % (42.0-52.0); Hemoglobin 15.1 g/dl (14.0-18.0); Imm Gran Abs Auto 0.01 X10*3/uL (0.00-0.03); Imm Gran Pct Auto 0.2 % (0.0-0.4); Lymphocytes Absolute Auto 1.2 X10*3/uL (1.2-4.9); Lymphocytes Percent Auto 24.4 % (20-40); Mean Corpuscular HGB Conc 34.2 g/dl (31.0-36.0); Mean Corpuscular Hemoglobin 28.2 pg (27.0-33.0); Mean Corpuscular Volume 82.3 fL (80.0-98.0); Mean Platelet Volume 10.8 fL (9.4-12.4); Monocytes Absolute Auto 0.4 X10*3/uL (0.1-1.2); Monocytes Percent Auto 8.2 % (2-11); Neutrophils Absolute Auto 3.2 x10*3/uL (2.0-8.3); Neutrophils Percent Auto 63.2 % (45-73); Platelet Count 151 X10*3/uL (160-400); Red Blood Count 5.36 X10*6/uL (4.60-5.80); Red Cell Distribution Width 13.2 % (11.0-16.0)
[2023-08-08 10:12] LABS: Estimated Average Glucose 97 mg/dL
[2023-08-08 10:21] LABS: Alanine Aminotransferase 29 U/L (0-40); Albumin Level 4.4 g/dL (3.5-5.0); Alkaline Phosphatase 67 U/L (39-117); Anion Gap 13 (12-20); Aspartate Amino Transferase 20 U/L (5-37); Bilirubin Total 0.8 mg/dL (0.0-1.0); Blood Urea Nitrogen 18 mg/dL (9-16); Calcium 9.5 mg/dL (8.4-10.2); Carbon Dioxide 26 mmol/L (22-29); Chloride 106 mmol/L (96-108); Estimated Glomerular Filt Rate > 60; Glucose Random 108 mg/dL (60-115); Sodium 141 mmol/L (135-145); Total Protein 7.6 g/dL (6.5-8.0)
[2023-08-08 10:39] LABS: Prostate Specific Antigen Scr 0.96 ng/mL (<0.05-4.0)
== END 2023-08-08 07:16 | disposition home or self-care (01) ==
LOC: HO.LAB 07:15
PROVIDERS: PCP Internal Medicine; Visit Provider Internal Medicine
DX: Z12.5 Encounter for screening for malignant neoplasm of prostate (principal); I10 Essential (primary) hypertension; R73.03 Prediabetes; Z82.49 Family history of ischemic heart disease and other diseases of the circulatory system
CPT/HCPCS: 36415; 80053; 83036; 84153; 85025

== ENCOUNTER 2024-10-12 13:15 | Outpatient (AMB) | payer BC, SELFPAY ==
--- NOTE | 2024-10-12 13:33 | MHC.PC.OV ---
Vital Signs 10/12/24 13:34 Height 6 ft 1 in Weight 279 lb BMI 36.8 BP 148/82 H Blood Pressure Location Lt brachial Position Sitting Pulse 79 Pulse Source Pulse Oximeter Pulse Oximetry (%) 98 Oxygen Delivery Method Room Air Intake Visit Reasons: transfer from [facility] Allergies pollen Allergy (Unknown, Uncoded 10/12/24 13:35) Unknown Medication List - Last Reconciled 10/12/24 by Jocelyne Wakefield MD amlodipine 10 mg PO DAILY irbesartan 300 mg PO DAILY metoprolol succinate ER 50 mg PO DAILY Tobacco use date assessed: 10/12/24 Dental Screening Dental Screen Date: 10/12/24 Did you have a dental visit in the last 12 months?: Yes Did you have a dental problem in the last 6 months where you did not have access to dental care?: No Was dental information given to patient?: Patient has dentist [facility] Medical History (Updated 10/12/24 @ 14:10 by Jocelyne Wakefield MD) Kidney stones COVID-19 vaccine series completed HTN (hypertension) On beta princess at home Arthritis Nephrolithiasis VONNIE (obstructive sleep apnea) Elevated cholesterol Surgical History (Updated 10/12/24 @ 14:06 by Jocelyne Wakefield MD) H/O arthroscopy of right knee Hx of colonoscopy S/P cholecystectomy History of total right knee replacement (TKR) Family History (Updated 10/12/24 @ 14:07 by Jocelyne Wakefield MD) Mother Heart attack Father Heart attack Sister No problems noted. Sister No problems noted. Sister No problems noted. Son No problems noted. Son No problems noted. Daughter No problems noted. Social History (Updated 10/12/24 @ 14:07 by Jocelyne Wakefield MD) Housing: House Are you a primary personal care aid to a significant other at home: No Do you presently have visiting nurse or other home services: No Alcohol intake: current Alcohol intake frequency: does not drink Comment: once aweek 2 drinks Patient Tobacco Use Status: Never used Tobacco Tobacco use type: Cigarette e-Cigarette/Vaping Use: Never Used Second Hand Smoke Exposure: No service: No Current occupational status: employed Current occupational exposures/hazards: No Cognitive needs: No Hearing needs: No Vision needs: Yes Questionnaire PHQ-9 Over the last 2 weeks, how often have you been bothered by any of the following problems? 1. Little interest or pleasure in doing things: not at all 2. Feeling down, depressed, or hopeless: not at all 3. Trouble falling or staying asleep, or sleeping too much: not at all 4. Feeling tired or having little energy: not at all 5. Poor appetite or overeating: not at all 6. Feeling bad about yourself - or that you are a failure or have let yourself or your family down: not at all 7. Trouble concentrating on things, such as reading the newspaper or watching television: not at all 8. Moving or speaking so slowly that other people could have noticed. Or the opposite - being so fidgety or restless that you have been moving around a lot more than usual: not at all 9. Thoughts that you would be better off or of hurting yourself in some way: not at all Total score: 0 Depression Screening Interpretation: Negative Depression Screening Done: Yes 12104 - PHQ-9 Billing: Yes Source: Developed by Drs. Maxi Barney, Cecy Bear, Leonardo Shaw and colleagues, with an educational ofelia from [employer]. Thrive Questionnaire Date Thrive assessed: 10/12/24 I am a: Patient What is your living situation today?: I have a steady place to live Within the past 12 months, did the food you bought not last and you didn't have the money to get more?: Never true Within the past 12 months, did you worry whether your food would run out before you got money to buy more?: Never true Do you have trouble paying for medicines?: No Do you have trouble getting transportation to medical appointments?: No Do you have trouble taking care of your child, family member or friend?: No Do you have trouble with day-to-day activities such as bathing, preparing meals, shopping, managing finances, etc.?: No Are you currently unemployed and looking for a job?: No Are you interested in more education?: No Please select the resources that you would like help with: None Currently or been in a relationship where the following occur: No concerns reported THRIVE Score: 0 AUDIT C Alcohol Use Questionnaire (AUDIT-C) 1. How often do you have a drink containing alcohol?: 2-4 times a month 2. How many drinks containing alcohol do you have on a typical day when you are drinking?: 1 or 2 3. How often do you have six or more drinks on one occasion?: Never Total Score: 2 NANI-7 AMB Questionnaire NANI-7 Date NANI - 7 assessed: 10/12/24 Feeling nervous, anxious, or on edge: 1 = Several days Not being able to stop or control worryin = Not at all Worrying too much about different things: 0 = Not at all Trouble relaxin = Not at all Being so restless that it is hard to sit still: 0 = Not at all Becoming easily annoyed or irritable: 0 = Not at all Feeling afraid as if something awful might happen: 0 = Not at all Total NANI-7 score (0-4 normal; 5-9 mild; 10-14 moderate; 15-21 severe): 1 Source: Developed by Drs. Maxi Barney, Cecy Bear, Leonardo Shaw and colleagues, with an educational ofelia from [employer]. NANI-7 Assessment Billing NANI-7 Assessment Tool: ANNI-7 Assessment 25253 Physical exam (Primary Care) Vital Signs: Last Vital Signs Pulse 79 10/12/24 13:34 BP 148/82 H 10/12/24 13:34 Pulse Ox 98 10/12/24 13:34 Oxygen Delivery Method Room Air 10/12/24 13:34 BMI result Body Mass Index 36.8 Tobacco/Smoking Status: Tobacco use Status Tobacco use date assessed 10/12/24 10/12/24 13:41 Patient Tobacco Use Status Never used Tobacco 10/12/24 13:34 Tobacco use type Cigarette 10/12/24 13:41 e-Cigarette/Vaping Use Never Used 10/12/24 13:41 PHQ-9: PHQ-9 Score PHQ-9: Total score 0 10/12/24 13:41 Depression Screening Interpretation: Negative Thrive Assessment: Date of Thrive Assessment Date Thrive assessed 10/12/24 10/12/24 13:41 Currently or been in a relationship where the following occur: No concerns reported Const General: alert; No acute distress Eyes Conjunctivae: conjunctivae normal Resp Auscultation: clear to auscultation bilaterally Cardio Rate: regular rate Rhythm: regular rhythm GI Inspection: Yes normal to inspection Extrem General: Yes normal to inspection and No edema Coding Level of Care Code Est Pt Level 4 (75690) Complex EM visit Add On G2211 Diagnoses HTN (hypertension) I10 Elevated cholesterol E78.00 Hepatic steatosis K76.0 Renal cancer C64.9 Nephrolithiasis N20.0 Obesity (BMI 30-39.9) E66.9 History of total right knee replacement (TKR) Z96.651 VONNIE (obstructive sleep apnea) G47.33 Onychomycosis B35.1 Additional Codes NANI-7 Assessment Billing - NANI-7 Assessment Tool: NANI-7 Assessment 99198 ([id number]) PHQ-9 - 65330 - PHQ-9 Billing: Yes ([id number]) Assessment & Plan Assessment & Plan (1) HTN (hypertension): Code(s): I10 - Essential (primary) hypertension Category: Medical Plan: Continue with blood pressure medication. Decrease salt intake and exercise presently on amlodipine 10 mg once a day irbesartan 300 mg once a day and metoprolol 50 mg once a day. (2) Elevated cholesterol: Code(s): E78.00 - Pure hypercholesterolemia, unspecified Category: Medical Plan: Avoid fried foods, chicken skin, eggs, butter margarine, pastries and meat. Be it pork or beef they have a lot of cholesterol LDL goal of less than 130 and triglyceride of less than 150. (3) Hepatic steatosis: Code(s): K76.0 - Fatty (change of) liver, not elsewhere classified Category: Medical Plan: Low-fat diet and exercise (4) Renal cancer: Comment: April 2022left mass, biopsy: Clear cell renal cell carcinoma, Tenisha grade 2 Code(s): C64.9 - Malignant neoplasm of unspecified kidney, except renal pelvis Category: Medical Plan: Patient has been follow-up with the Urology. (5) Nephrolithiasis: Code(s): N20.0 - Calculus of kidney Category: Medical Plan: Keep well hydrated (6) Obesity (BMI 30-39.9): Code(s): E66.9 - Obesity, unspecified Category: Medical Plan: Diet and exercise (7) History of total right knee replacement (TKR): Comment: 2019- Dr. Jorge Luis Veliz knee Code(s): Z96.651 - Presence of right artificial knee joint Category: Surgical (8) VONNIE (obstructive sleep apnea): Comment: UTILIZES CPAP Code(s): G47.33 - Obstructive sleep apnea (adult) (pediatric) Category: Medical (9) Onychomycosis: Code(s): B35.1 - Tinea unguium Category: Medical Plan History of Present Illness Health Maintenance - Blood pressure monitoring advised regularly at home, two to three times a week. - Emphasis on a low-sodium diet and exercise for obesity and hypertension management. - Recommended cholesterol management with LDL goal <130 mg/dL. - Discussion on vaccination updates: advised for annual flu shots, pneumococcal vaccination due to cancer history, consideration for shingles vaccine. - Colonoscopy screening: last performed July 2020 with normal findings; follow-up in ten years. - Nutritional guidance focusing on plant-based diet and reduction of processed foods. - Continual active management of sleep apnea with CPAP usage. Social History - Does not smoke or use recreational drugs; occasional alcohol consumption (approximately 2 beers per week). - Obesity is a longstanding issue with previous attempts at weight loss. 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 - Dietary habits include attempts to eat more organic foods, low-sodium intake due to hypertension. - Functional mobility affected by right knee replacements and ongoing left knee issues. Review of Systems - Cardiovascular: Reports chronic hypertension, on three antihypertensive medications. - Respiratory: Denies any respiratory issues except for known sleep apnea. - Musculoskeletal: Reports right knee pain post-replacement impacting mobility; left knee also problematic. - Endocrine: Reports history of obesity with ongoing weight management concerns. - Skin: Reports onychomycosis with yellowed, thickened toenails. Physical Exam - Vital Signs- Blood pressure recorded at 170 mmHg during the visit. - General- Patient appears well-nourished but obese. - Cardiovascular- No specific abnormalities noted during auscultation. - Pulmonary- Clear to auscultation, without adventitious sounds noted. - Musculoskeletal- Notable joint enlargement of the right knee, post-operative scars. - Nails- Presence of yellow discoloration and thickening in toenails indicative of fungal infection. Results - CT Scan (August 2022): Ablation defect in the left kidney, no disease recurrence, noted hepatic steatosis and mild splenomegaly. - Laboratory (July 2023): Mild thrombocytopenia, normal renal function, elevated glucose (108 mg/dL). Plan Today's focus was refining our management approach to several of the patient's ongoing health concerns. Hypertension management remains a priority, with home monitoring to better capture true hypertensive status, given occasional white coat effects. I prescribed an antifungal medication for the patient's troublesome onychomycosis and outlined careful monitoring due to potential side effects. The patient's sleep apnea is stable on CPAP therapy. We deliberated on weight management interventions, including diet and physical activity adjustments, aligning these with recommendations towards achieving better overall cardiovascular health. Further orthopedic assessment was prepared to address the patient's knee issues. Follow-up on renal cancer post-management continues uneventfully with scheduled surveillance. Patient was informed and verbally consented to the use of an ambient scribe for clinic note documentation during this visit. Discussion Notes I reviewed the importance of hypertension management, including potential adjustments to current medication regimens contingent upon home monitoring results over the next few weeks. Emphasis was placed on reducing sodium intake, adopting a plant-based diet, and engaging in exercise as tolerated by knee status. Risks of untreated hypertension, particularly cardiovascular and renal sequelae, were discussed. For onychomycosis management, I described Lamisil therapy, detailing hepatic risk and need for interim monitoring. The patient consents to ongoing surveillance for renal post-cancer care, aligning with standard follow-up care. The prospective shingles and pneumococcal vaccinations were explained, with advisement to consider scheduling when convenient due to potential side effects. Both knee issues necessitating orthopedic consultation were discussed, with referral arranged. Patient Instructions - Monitor blood pressure at home 2-3 times per week and record readings. - Schedule orthopedic consultation for knee evaluation. - Take Lamisil 250 mg once daily for toenail fungus; return for liver function tests in four weeks. - Follow a low-fat, low-sodium diet; increase physical activity with a focus on low-impact exercises. - Continued CPAP use as prescribed for sleep apnea. - Consider pneumonia and shingles vaccines in consultation with pharmacy. - Plan for a physical in the next visit to evaluate overall health. - Contact me if home blood pressure readings remain high over 2 weeks. Orders: Orders Thyroid Stimulating Hormone Today E78.00 - Pure hypercholesterolemia, unspecified Lipid Panel Today E78.00 - Pure hypercholesterolemia, unspecified Vitamin B12 and Folate Today E78.00 - Pure hypercholesterolemia, unspecified Prostate Specific Antigen Scr Today E78.00 - Pure hypercholesterolemia, unspecified Complete Blood Count Auto Diff Today E78.00 - Pure hypercholesterolemia, unspecified Comprehensive Met. Panel Today E78.00 - Pure hypercholesterolemia, unspecified Free T4 (Free Thyroxine) Today E78.00 - Pure hypercholesterolemia, unspecified XR knee RT 2V Today Z96.651 - Presence of right artificial knee joint Referrals Urology Referral C64.9 - Malignant neoplasm of unspecified kidney, except renal pelvis Orthopedics Referral Z96.651 - Presence of right artificial knee joint Medications: New terbinafine HCl 250 mg PO DAILY 12 weeks 84 tabs 0RF B35.1 - Tinea unguium
[2024-10-12 13:34] VITALS: BP 148/82; PULSE 79; O2SAT 98; BMI 36.8
--- OUTSIDE RECORDS SUMMARY | 2024-10-12 15:49 | XMS_ITS | Patient Health Record ---
Author Organization [facility] Address [address] [place] [address] Care Team Providers Care Product Development Scientist Name Role Phone Zaheer Howard MD Primary Care Provider Unavaila Maxi Kang Unavailable [phone] Reason For Referral No Information Medications Medication SIG (Take, Route, Frequency, Duration) Notes Start Date End Date Status Metoprolol Succinate 50 MG Orally Active Irbesartan 200 mg Ac tive amLODIPine Besylate Active Ibuprofen Active Immunizations Vaccine Route Administration Date Status Comme nts Influenza Unknown 03/21/2020 Administered Social History Tobacco Use: Social History Observation Description Date Details (start date - stop date) Never Smoker NA - NA Tobacco Use/Smoking Question Answer Notes Patient is a nonsmoker Alcohol Screen Question Answer Notes Did you have a drink contain ing alcohol in the past year? Yes How often did you have a dri nk containing alcohol in the past year? 2 to 4 times a month (2 points) How often did you have 6 or more drinks on one occasion in the past year? Never (0 point) Points 2 Interpretation Negative Section Notes: Nonsmoker; occasional alcoho l Problems Problem Type SNOMED Code ICD Code Onset Dates Problem Status W/U Status Risk Notes Problem Screening for malignant neoplasm of colon (384118309) Encounter for screening for malignant neoplasm of colon (Z12.11) Active confirmed Problem Preprocedural examination (951112859180582) Preprocedural examination (Z01.818) Active confirmed Plan Of Treatment Future Test Test Name Order Date COLONOSCOPY 06/27/2020 Insurance Providers Payer Name Payer Address Payer Phone Subscriber Number Group Number Insured Name Patient Relationship to Insured Coverage Start Date Coverage End Date [facility] [address] [place], [place] [id number] RAMIREZKEIN Self - patient is the insured Medical (General) History Medical History History ICD Code Hypertension Denies DC,DM,CVA,Lung disease,renal dise ase Neg colonoscopy in 1997 except for a hyp erplastic polyp Sleep apnea-uses CPAP Kidney stones Surgical History Surgery Date(Month/Year) Cholecystectomy Right knee replacement 2018 Dr. Kang
== END 2024-10-12 14:22 | disposition home or self-care (01) ==
LOC: HO.HMCH 13:15
PROVIDERS: PCP Internal Medicine; Visit Provider Internal Medicine
DX: I10 Essential (primary) hypertension (principal); C64.9 Malignant neoplasm of unspecified kidney, except renal pelvis; Z68.35 Body mass index [BMI] 35.0-35.9, adult; E66.9 Obesity, unspecified; E78.00 Pure hypercholesterolemia, unspecified; K76.0 Fatty (change of) liver, not elsewhere classified; N20.0 Calculus of kidney; Z96.651 Presence of right artificial knee joint; G47.33 Obstructive sleep apnea (adult) (pediatric); B35.1 Tinea unguium

== ENCOUNTER → 2024-10-12 13:15 | Outpatient (BNVA) | payer BC, SELFPAY | PROVIDERS: PCP Internal Medicine; Visit Provider Internal Medicine | DX: I10 Essential (primary) hypertension (principal); E78.00 Pure hypercholesterolemia, unspecified; K76.0 Fatty (change of) liver, not elsewhere classified; C64.9 Malignant neoplasm of unspecified kidney, except renal pelvis; N20.0 Calculus of kidney; E66.9 Obesity, unspecified; G47.33 Obstructive sleep apnea (adult) (pediatric); B35.1 Tinea unguium; Z79.899 Other long term (current) drug therapy; Z96.651 Presence of right artificial knee joint | CPT/HCPCS: 96127 ==

== ENCOUNTER 2024-12-03 08:52 | Outpatient (REF) | payer BC, SELFPAY ==
--- NOTE | ~2024-12-03 | XR_ITS ---
CLINICAL HISTORY: Z96.651 - Presence of right artificial knee joint 2 view right knee Comparison: None Findings: No fractures or dislocations. Total knee arthroplasty. No findings of complication or failure. No joint effusion. No joint effusion. IMPRESSION: 1. Total knee arthroplasty without findings of complication. This document has been electronically signed by: Nikki Fontaine MD on 12/06/2024 09:02:26
[2024-12-03 09:07] LABS: MANUAL DIFF FLAG NO
[2024-12-03 09:45] LABS: Basophils Percent Auto 0.4 % (0-2); Eosinophils Absolute Auto 0.1 X10*3/uL (0.0-0.4); Hematocrit 43.2 % (42.0-52.0); Hemoglobin 15.3 g/dl (14.0-18.0); Imm Gran Abs Auto 0.01 X10*3/uL (0.00-0.03); Imm Gran Pct Auto 0.2 % (0.0-0.4); Lymphocytes Absolute Auto 1.1 X10*3/uL (1.2-4.9); Lymphocytes Percent Auto 22.5 % (20-40); Mean Corpuscular HGB Conc 35.4 g/dl (31.0-36.0); Mean Corpuscular Hemoglobin 28.5 pg (27.0-33.0); Mean Corpuscular Volume 80.6 fL (80.0-98.0); Mean Platelet Volume 10.2 fL (9.4-12.4); Monocytes Absolute Auto 0.4 X10*3/uL (0.1-1.2); Monocytes Percent Auto 8.4 % (2-11); Neutrophils Absolute Auto 3.3 x10*3/uL (2.0-8.3); Neutrophils Percent Auto 66.5 % (45-73); Platelet Count 145 X10*3/uL (160-400); Red Blood Count 5.36 X10*6/uL (4.60-5.80); Red Cell Distribution Width 13.5 % (11.0-16.0)
[2024-12-03 10:31] LABS: Alanine Aminotransferase 43 U/L (0-40); Albumin Level 4.8 g/dL (3.5-5.0); Alkaline Phosphatase 64 U/L (39-117); Anion Gap 13 (12-20); Aspartate Amino Transferase 27 U/L (5-37); Bilirubin Total 1.1 mg/dL (0.0-1.0); Blood Urea Nitrogen 22 mg/dL (9-16); Calcium 9.4 mg/dL (8.4-10.2); Carbon Dioxide 25 mmol/L (22-29); Chloride 106 mmol/L (96-108); Cholesterol 168 mg/dL (<200); Estimated Glomerular Filt Rate > 60; Glucose Random 114 mg/dL (60-115); HDL Cholesterol 45 mg/dL (>40); LDL Cholesterol Calculated 103 mg/dL (<100); Potassium 3.8 mmol/L (3.3-5.1); Sodium 140 mmol/L (135-145); Total Protein 7.7 g/dL (6.5-8.0); Triglycerides 100 mg/dL (<150)
[2024-12-03 10:48] LABS: Free T4 (Free Thyroxine) 1.04 ng/dL (0.71-1.85); Thyroid Stimulating Hormone 1.33 uIU/mL (0.32-4.0)
[2024-12-03 10:56] LABS: Folate 10.8 ng/mL (> or = 4.0); Prostate Specific Antigen Scr 1.44 ng/mL (<0.05-4.0); Vitamin B12 514 pg/mL (200-900)
== END 2024-12-03 08:53 | disposition home or self-care (01) ==
LOC: HO.XRAY 08:52
PROVIDERS: PCP Internal Medicine; Visit Provider Internal Medicine
DX: E78.00 Pure hypercholesterolemia, unspecified (principal); Z96.651 Presence of right artificial knee joint; Z12.5 Encounter for screening for malignant neoplasm of prostate
CPT/HCPCS: 36415; 73560; 80053; 80061; 82607; 82746; 84153; 84439; 84443; 85025

== ENCOUNTER → 2024-12-03 09:12 | Outpatient (BNV) | payer BC, SELFPAY | PROVIDERS: PCP Internal Medicine; Visit Provider Radiology Diagnostic Radiology | DX: Z96.651 Presence of right artificial knee joint (principal) | CPT/HCPCS: 73560 ==

== ENCOUNTER 2024-12-12 14:28 | Outpatient (AMB) | payer BC, SELFPAY ==
[2024-12-12 14:51] VITALS: BMI 36.8
--- NOTE | 2024-12-12 14:51 | A.OFFVIS_ITS ---
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 Hx of Right TKA 10/04/2018 with . Patient reports that he has had pain since the surgery that has persisted with no relief. He feels continued tightness of the knee and intermittent bruising to the posterior aspect of the knee without any mechanism of injury. 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 Hx of Right TKA 10/04/2018 with . Patient reports that he has had pain since the surgery that has persisted with no relief. He feels continued tightness of the knee and intermittent bruising to the posterior aspect of the knee without any mechanism of injury. Taking Tylenol and has completed PT. 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 He states his knee pain progressively worsens throughout the day. He recently went on a vacation where he felt better. He has left knee pain as well but he states his right knee is worse. He denies fevers and chills. [facility] Medical History (Updated 12/12/24 @ 16:05 by Gordon Knox MD) Kidney stones COVID-19 vaccine series completed HTN (hypertension) On beta princess at home Arthritis Nephrolithiasis VONNIE (obstructive sleep apnea) Elevated cholesterol Surgical History (Updated 10/12/24 @ 16:18 by Jocelyne Wakefield MD) H/O arthroscopy of right knee Hx of colonoscopy S/P cholecystectomy History of total right knee replacement (TKR) Family History (Updated 10/12/24 @ 14:07 by Jocelyne Wakefield MD) Mother Heart attack Father Heart attack Sister No problems noted. Sister No problems noted. Sister No problems noted. Son No problems noted. Son No problems noted. Daughter No problems noted. Social History (Updated 10/12/24 @ 14:07 by Jocelyne Wakefield MD) Housing: House Are you a primary rn critical care to a significant other at home: No Do you presently have visiting nurse or other home services: No Alcohol intake: current Alcohol intake frequency: does not drink Comment: once aweek 2 drinks Patient Tobacco Use Status: Never used Tobacco Tobacco use type: Cigarette e-Cigarette/Vaping Use: Never Used Second Hand Smoke Exposure: No service: No Current occupational status: employed Current occupational exposures/hazards: No Cognitive needs: No Hearing needs: No Vision needs: Yes Physical Exam Vital Signs: BMI result Body Mass Index 36.8 Extrem Other: Physical examination of the right knee demonstrates a 1+ effusion with no erythema or tenderness to palpation. He has 120 degrees of flexion with mild discomfort on forced terminal flexion. Full extension. Stable to varus and valgus stress. Stable throughout arc of motion. Walks with no abnormality. Results Reviewed Results Reviewed: I personally reviewed relevant radiographs. RIght total knee arthroplasty in expected post operative position with no hardware complications or evidence of loosening Left knee moderate medial compartment OA Assessment & Plan Assessment & Plan (1) History of total right knee replacement (TKR): Comment: 09/2018- Dr. Kang R knee Code(s): Z96.651 - Presence of right artificial knee joint Category: Surgical Plan: Right knee status post knee replacement. He has a ongoing mild effusion. There is no evidence of infection or loosening and I suspected his slight swelling and discomfort are due to chronic overuse at work. He seems to feel better when he goes on vacation. No acute intervention warranted. If his pain worsens or his swelling worsens he will let me know. (2) Osteoarthritis of left knee: Code(s): M17.12 - Unilateral primary osteoarthritis, left knee Category: Medical Plan: Left knee osteoarthritis with symptoms that are , at this point in time, mild. I discussed options if his pain worsens such as injections and therapy but at this time it is his right knee that is more bothersome and even the so it does not prevent him from getting through his day. I would try to focus a little more on fitness and a little less on working especially given that his job requires a lot of stepping up. Orders: Orders XR knee standing BI Today M25.569 - Pain in unspecified knee XR knee RT 1V Today M25.569 - Pain in unspecified knee Coding Level of Care Code Est Pt Level 3 (16290) Complex EM visit Add On G2211 Diagnoses History of total right knee replacement (TKR) Z96.651 Osteoarthritis of left knee M17.12
--- OUTSIDE RECORDS SUMMARY | 2024-12-12 15:46 | XMS_ITS | Patient Health Record ---
Author Organization [facility] Address [address] [place] [address] Care Team Providers Care Pulverizer Feeder Name Role Phone Zaheer Howard MD Primary Care Provider Unavaila Maxi Kang Unavailable [phone] Reason For Referral No Information Medications Medication [...] Problem Screening for malignant neoplasm of colon ([id number]) Encounter for screening for malignant neoplasm of colon (Z12.11) Active confirmed Problem Preprocedural examination ([id number]) Preprocedural examination (Z01.818) Active confirmed Plan Of Treatment Future Test Test Name Order Date COLONOSCOPY 06/27/2020 Insurance Providers Payer Name Payer Address Payer Phone Subscriber Number Group Number Insured Name Patient Relationship to Insured Coverage Start Date Coverage End Date [facility] [address] [place], [place] [id number] RAMIREZKEIN Self - patient is the insured Medical (General) History Medical History History ICD Code Hypertension Denies ME,DM,CVA,Lung disease,renal dise ase Neg colonoscopy in 1997 except for a hyp erplastic polyp Sleep apnea-uses CPAP Kidney stones Surgical History Surgery Date(Month/Year) Cholecystectomy Right knee replacement 2018 Dr. Kang
== END 2024-12-12 16:05 | disposition home or self-care (01) ==
LOC: HO.HOS 14:29
PROVIDERS: PCP Internal Medicine; Visit Provider Orthopaedic Surgery
DX: M17.12 Unilateral primary osteoarthritis, left knee (principal); Z96.651 Presence of right artificial knee joint
CPT/HCPCS: 99213

== ENCOUNTER 2024-12-12 14:28 | Outpatient (REF) | payer BC, SELFPAY ==
--- NOTE | ~2024-12-12 | XR_ITS ---
EXAMINATION: XR KNEES ANTEROPOSTERIOR STANDING BILATERAL, XR KNEE 1 VIEW RIGHT HISTORY: M25.569 - Pain in unspecified knee COMPARISON: Comparison is made with the prior examination dated 12/03/2024. FINDINGS: Standing AP views of both knees and an additional sunrise patellar view of the right knee are submitted. The patient is again noted to be status post total knee arthroplasty. The orthopedic elements are in anatomic alignment. There is no radiographic evidence of loosening or fracture. There is mild narrowing of the medial compartment of the left knee. The soft tissues are unremarkable. XR/XR knee standing BI IMPRESSION: Status post right total knee arthroplasty. Electronically signed by: Maxi Vega MD 12/13/2024 08:24 AM EDT
--- NOTE | ~2024-12-12 | XR_ITS ---
EXAMINATION: XR KNEES ANTEROPOSTERIOR STANDING BILATERAL, XR KNEE 1 VIEW RIGHT HISTORY: M25.569 - Pain in unspecified knee COMPARISON: Comparison is made with the prior examination dated 12/03/2024. FINDINGS: Standing AP views of both knees and an additional sunrise patellar view of the right knee are submitted. The patient is again noted to be status post total knee arthroplasty. The orthopedic elements are in anatomic alignment. There is no radiographic evidence of loosening or fracture. There is mild narrowing of the medial compartment of the left knee. The soft tissues are unremarkable. XR/XR knee RT 1V IMPRESSION: Status post right total knee arthroplasty. Electronically signed by: Maxi Vega MD 12/13/2024 08:24 AM EDT
== END 2024-12-12 14:29 | disposition home or self-care (01) ==
LOC: HO.HOSX 14:28
PROVIDERS: PCP Internal Medicine; Visit Provider Orthopaedic Surgery
DX: T84.84XA Pain due to internal orthopedic prosthetic devices, implants and grafts, initial encounter (principal); M17.12 Unilateral primary osteoarthritis, left knee; Z96.651 Presence of right artificial knee joint
CPT/HCPCS: 73560; 73565

== ENCOUNTER → 2024-12-12 15:24 | Outpatient (BNV) | payer BC, SELFPAY | PROVIDERS: PCP Internal Medicine; Visit Provider Radiology Diagnostic Radiology | DX: Z96.651 Presence of right artificial knee joint (principal) | CPT/HCPCS: 73560; 73565 ==

== ENCOUNTER 2024-12-14 14:59 | Outpatient (AMB) | payer BC, SELFPAY ==
--- OUTSIDE RECORDS SUMMARY | 2024-12-14 15:05 | XMS_ITS | Patient Health Record ---
Author Organization [facility] Address [address] [place] [address] Care Team Providers Care Daytime Caregiver Name Role Phone Zaheer Howard MD Primary Care Provider Unavaila Maxi Kang Unavailable [phone] Reason For Referral No Information Medications Medication [...] Problem Screening for malignant neoplasm of colon (813651035) Encounter for screening for malignant neoplasm of colon (Z12.11) Active confirmed Problem Preprocedural examination ([id number]) Preprocedural examination (Z01.818) Active confirmed Plan Of Treatment Future Test Test Name Order Date COLONOSCOPY 06/27/2020 Insurance Providers Payer Name Payer Address Payer Phone Subscriber Number Group Number Insured Name Patient Relationship to Insured Coverage Start Date Coverage End Date [facility] [address] [place], [place] [id number] [phone] [id number] Self - patient is the insured Medical (General) History Medical History History ICD Code Hypertension Denies [place],DM,CVA,Lung disease,renal dise ase Neg colonoscopy in 1997 except for a hyp erplastic polyp Sleep apnea-uses CPAP Kidney stones Surgical History Surgery Date(Month/Year) Cholecystectomy Right knee replacement 2018 Dr. Kang
--- NOTE | 2024-12-14 15:21 | A.OFFVIS_ITS ---
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 He is a patient of Dr. Howard. 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 Right-sided renal cyst - 09/04 Ablation defect left kidney with no evidence of residual or recurrent disease. Therapy 05/03 cryotherapy Pathology - 05/03 renal cell carcinoma Zhao grade 2 Cr 12/04 0.92 Nephrolithiasis Ongoing with sporadic passage since 2009 Recent ER visit with marked pain on right side Imaging - 12/31 CT scan 3 mm distal right ureteric stone with associated mild h ydroureteronephrosis, 4 mm lower pole stone on right Discussion regarding intervention PFSH Medical History (Updated 12/12/24 @ 16:05 by Gordon Knox MD) Kidney stones COVID-19 vaccine series completed HTN (hypertension) On beta princess at home Arthritis Nephrolithiasis VONNIE (obstructive sleep apnea) Elevated cholesterol Surgical History (Updated 10/12/24 @ 16:18 by Jocelyne Wakefield MD) H/O arthroscopy of right knee Hx of colonoscopy S/P cholecystectomy History of total right knee replacement (TKR) Family History (Updated 10/12/24 @ 14:07 by Jocelyne Wakefield MD) Mother Heart attack Father Heart attack Sister No problems noted. Sister No problems noted. Sister No problems noted. Son No problems noted. Son No problems noted. Daughter No problems noted. Social History (Updated 10/12/24 @ 14:07 by Jocelyne Wakefield MD) Housing: House Are you a primary vocational childcare teacher to a significant other at home: No Do you presently have visiting nurse or other home services: No Alcohol intake: current Alcohol intake frequency: does not drink Comment: once aweek 2 drinks Patient Tobacco Use Status: Never used Tobacco Tobacco use type: Cigarette e-Cigarette/Vaping Use: Never Used Second Hand Smoke Exposure: No service: No Current occupational status: employed Current occupational exposures/hazards: No Cognitive needs: No Hearing needs: No Vision needs: Yes Review of Systems Const Denies chills and Denies fever(s) Card Reports no additional complaints and Denies syncope Resp Denies cough GI Denies abdominal pain and Denies heartburn Reports as per HPI and Denies change in libido Neuro Denies syncope Psych Denies change in libido Endo Denies change in libido Physical Exam Const General: cooperative, healthy appearing, comfortable and no acute distress Orientation/consciousness: patient oriented x3 HEENT Face and sinus: Yes normal facial exam Mouth: moist mucous membranes Neck Neck: Yes normal visual inspection, Yes full ROM and Yes trachea midline Chest Chest palpation & inspection: normal inspection of the chest Resp Effort & Inspection: normal respiratory effort, able to speak in complete sentences and no respiratory distress GI Inspection: Yes normal to inspection Back/Spine/Pelvis Cervical Spine: normal cervical lordosis Thoracic/Lumbar Spine: thoracic and lumbar spine normal to inspection Skin General skin exam: no rashes or lesions noted Neuro General: patient oriented x3, gait normal, tone normal and moves all extremities Extrem General: Yes normal to inspection and Yes capillary refill normal Assessment & Plan Assessment & Plan (1) Renal cancer: Comment: April 2022left mass, biopsy: Clear cell renal cell carcinoma, Tenisha grade 2 CT 08/2022 Code(s): C64.9 - Malignant neoplasm of unspecified kidney, except renal pelvis Category: Medical (2) Nephrolithiasis: Code(s): N20.0 - Calculus of kidney Category: Medical Plan Repeat imaging Litholink Orders: Orders US renal BI 4 Months N20.0 - Calculus of kidney URORISK Today N20.0 - Calculus of kidney Patient Instructions: This note is constructed using voice recognition software. While every effort has been made to ensure accuracy veneer press operator errors may have been included. Imaging studies, laboratory and physical exam results were discussed and reviewed in detail. No major barriers to patient understanding were identified. An opportunity to ask questions regarding the treatment plan was provided. All questions were answered. The patient expressed understanding and agreement with the above treatment plan. The patient is aware they should contact our office by phone for worsening of their current condition or the appearance of new urologic symptoms. Compliance is encouraged with any medications and followup testing that is ordered. It is a privilege to participate in the urologic care of your patient. If you have any questions or concerns regarding treatment for the above conditions, or other urologic issues, please do not hesitate to contact me. The office telephone contact is [phone]. Sincerely, Dr Allen Yo MD, [facility] - Urology Compassionate Specialist Care for the Genitourinary System Coding Level of Care Code Est Pt Level 4 (65110) Diagnoses Renal cancer C64.9 Nephrolithiasis N20.0
== END 2024-12-14 16:02 | disposition home or self-care (01) ==
LOC: HO.HUSH 15:00
PROVIDERS: PCP Internal Medicine; Visit Provider Urology
DX: C64.9 Malignant neoplasm of unspecified kidney, except renal pelvis (principal); N20.0 Calculus of kidney
CPT/HCPCS: 99214

== ENCOUNTER 2025-02-20 16:00 | Outpatient (AMB) | payer BC, SELFPAY ==
--- OUTSIDE RECORDS SUMMARY | 2025-02-20 16:03 | XMS_ITS | Patient Health Record ---
Author Organization [facility] Address [address] [place] [address] Care Team Providers Care Contact Agent Name Role Phone Lee (RETIRED) Zaheer CARNES Primary Care Provide r Unavailable Maxi Hooker Unavailable [phone] Reason For Referral No Information Medications Medication [...] Problem Screening for malignant neoplasm of colon ([id number]) Encounter for screening for malignant neoplasm of colon (Z12.11) Active confirmed Problem Preprocedural examination ([id number]) Preprocedural examination (Z01.818) Active confirmed Plan Of Treatment Future Test Test Name Order Date COLONOSCOPY 06/27/2020 Insurance Providers Payer Name Payer Address Payer Phone Subscriber Number Group Number Insured Name Patient Relationship to Insured Coverage Start Date Coverage End Date [facility] [address] [place], [place] [id number] [phone] [id number] Self - patient is the insured Medical (General) History Medical History History ICD Code Hypertension Denies [place],DM,CVA,Lung disease,renal dise ase Neg colonoscopy in 1997 except for a hyp erplastic polyp Sleep apnea-uses CPAP Kidney stones Surgical History Surgery Date(Month/Year) Cholecystectomy Right knee replacement 2018 Dr. Kang
--- OUTSIDE RECORDS SUMMARY | 2025-02-20 16:03 | XMS_ITS ---
Author Name [facility] Organization Unknown Results Test Name/Text Value Interpretation Date Range Source EPITHELIAL CELLS UNSPECIFED, UA (CC TH) Rare Normal 10/31/2024 - [facility] WBC UrnS Ql Micro 1-5 Normal 10/31/2024 - S [facility] RBC # Ur >100 Abnormal 10/31/2024 - [facility] BACTERIA,UA (CC TH) None Seen Normal 10/31/2024 - [facility] TOTAL CASTS, UNSPECIFIED (CC TH) None Seen Normal 10/31/2024 - [facility] SPECIFIC GRAVITY, UA (CC TH) 1.013 Normal 10/31/2024 1.001 - 1.025 [facility] Nitrite Ur Ql Strip Negative Normal 10/31/2024 - [facility] Ketones Ur Ql Strip Negative Normal 10/31/2024 - [facility] pH Ur Strip 8.0 Normal 10/31/2024 5 - 8 [facility] Prot Ur Strip-mCnc Negative Normal 10/31/2024 - [facility] Clarity Ur Clear Normal 10/31/2024 - [facility] Glucose Ur Strip-mCnc Negative Normal 10/31/2024 - [facility] Urobilinogen Ur Strip-aCnc 0.2 mg/dL Normal 10/31/2024 - 2 [facility] RBC # Ur Strip Large Abnormal 10/31/2024 - [facility] Color Ur Auto Yellow Normal 10/31/2024 - [facility] SC Bilirub Ur Ql Strip Negative Normal 10/31/2024 - [facility] Leukocyte esterase Ur Ql Strip Negative Normal 10/31/2024 - [facility]
--- NOTE | 2025-02-20 16:19 | A.OFFPC_ITS ---
Vital Signs 3 02/20/25 16:20 Height 6 ft 1 in Weight 269 lb 8 oz BMI 35.6 BP 130/62 Blood Pressure Location Lt brachial Position Sitting Pulse 57 Pulse Source Pulse Oximeter Temp 97.1 F Temp Source Temporal Artery Scan Pulse Oximetry (%) 97 Oxygen Delivery Method Room Air Intake Visit Reasons: Annual Exam Intake Note: Patient is here today for a physical. Branch Assistant Required: No Beater Out Leveling Machine: Not Required per policy Accompanied by: Self / Same As Patient Allergies pollen Allergy (Unknown, Uncoded 02/20/25 16:20) Unknown Medication List - Last Reconciled 02/20/25 by Jocelyne Wakefield MD amlodipine 10 mg PO DAILY irbesartan 300 mg PO DAILY metoprolol succinate ER 50 mg PO DAILY terbinafine HCl 250 mg PO DAILY 12 weeks Tobacco use date assessed: 02/20/25 Dental Screening Dental Screen Date: 10/12/24 [facility] Medical History (Updated 02/20/25 @ 16:52 by Jocelyne Wakefield MD) Kidney stones COVID-19 vaccine series completed HTN (hypertension) On beta princess at home Arthritis Nephrolithiasis VONNIE (obstructive sleep apnea) Elevated cholesterol Surgical History H/O arthroscopy of right knee Hx of colonoscopy S/P cholecystectomy History of total right knee replacement (TKR) Family History Mother Heart attack Father Heart attack Sister No problems noted. Sister No problems noted. Sister No problems noted. Son No problems noted. Son No problems noted. Daughter No problems noted. Social History (Updated 02/20/25 @ 16:24 by LU Zuniga) Housing: House Are you a primary healthcare applications analyst to a significant other at home: No Do you presently have visiting nurse or other home services: No Alcohol intake: current Alcohol intake frequency: a few times a week Comment: once aweek 2 drinks Patient Tobacco Use Status: Never used Tobacco Tobacco use type: Cigarette e-Cigarette/Vaping Use: Never Used Second Hand Smoke Exposure: No service: No Current occupational status: employed Current occupational exposures/hazards: No Cognitive needs: No Hearing needs: No Vision needs: Yes Questionnaire PHQ-9 Over the last 2 weeks, how often have you been bothered by any of the following problems? 1. Little interest or pleasure in doing things: not at all 2. Feeling down, depressed, or hopeless: not at all 3. Trouble falling or staying asleep, or sleeping too much: not at all 4. Feeling tired or having little energy: not at all 5. Poor appetite or overeating: not at all 6. Feeling bad about yourself - or that you are a failure or have let yourself or your family down: not at all 7. Trouble concentrating on things, such as reading the newspaper or watching television: not at all 8. Moving or speaking so slowly that other people could have noticed. Or the opposite - being so fidgety or restless that you have been moving around a lot more than usual: not at all 9. Thoughts that you would be better off or of hurting yourself in some way: not at all Total score: 0 Depression Screening Interpretation: Negative Depression Screening Done: Yes Source: Developed by Drs. Maxi Barney, Cecy Bear, Leonardo Shaw and colleagues, with an educational ofelia from [employer]. Thrive Questionnaire Date Thrive assessed: 02/20/25 I am a: Patient What is your living situation today?: I have a steady place to live Within the past 12 months, did the food you bought not last and you didn't have the money to get more?: Never true Within the past 12 months, did you worry whether your food would run out before you got money to buy more?: Never true Do you have trouble paying for medicines?: No Do you have trouble getting transportation to medical appointments?: No Do you have trouble paying your heating and electricity bill?: No Do you have trouble taking care of your child, family member or friend?: No Do you have trouble with day-to-day activities such as bathing, preparing meals, shopping, managing finances, etc.?: No Are you currently unemployed and looking for a job?: No Are you interested in more education?: No Please select the resources that you would like help with: None Currently or been in a relationship where the following occur: No concerns reported THRIVE Score: 0 NANI-7 AMB Questionnaire NANI-7 Date NANI - 7 assessed: 10/12/24 Source: Developed by Drs. Maxi Barney, Cecy Bear, Leonardo Shaw and colleagues, with an educational ofelia from [employer]. Review of Systems Const Denies poor appetite and Denies weakness Eyes Denies no additional complaints ENT Reports Normal hearing present, Denies dizziness, Denies nasal congestion, Denies tinnitus and Denies sore throat Card Denies chest pain, Denies syncope, Denies rapid heart rate and Denies dyspnea Resp Denies cough and Denies dyspnea GI Denies change in stool character, Reports constipation, Denies diarrhea, Denies nausea and Denies vomiting Denies dysuria and Denies urinary frequency Neuro Reports Normal hearing present, Denies confusion, Denies dizziness, Denies syncope and Denies weakness Psych Denies confusion Physical exam (Primary Care) Vital Signs: Last Vital Signs Temp 97.1 F 02/20/25 16:20 Pulse 57 02/20/25 16:20 BP 130/62 02/20/25 16:20 Pulse Ox 97 02/20/25 16:20 Oxygen Delivery Method Room Air 02/20/25 16:20 BMI result Body Mass Index 35.6 Tobacco/Smoking Status: Tobacco use Status Tobacco use date assessed 02/20/25 02/20/25 16:25 Patient Tobacco Use Status Never used Tobacco 02/20/25 16:25 Tobacco use type Cigarette 02/20/25 16:25 e-Cigarette/Vaping Use Never Used 02/20/25 16:25 PHQ-9: PHQ-9 Score PHQ-9: Total score 0 02/20/25 17:11 Depression Screening Interpretation: Negative Thrive Assessment: Date of Thrive Assessment Date Thrive assessed 02/20/25 02/20/25 16:25 Currently or been in a relationship where the following occur: No concerns reported Const General: No confusion Orientation/consciousness: No confusion HENMT Head: Yes normocephalic Ears: external ears normal and TM's normal bilaterally Face and sinus: Yes normal facial exam Mouth: moist mucous membranes Throat: Yes tonsils normal Eyes Conjunctivae: conjunctivae normal Pupils: Equal, round and reactive pupils present and Pupil accommodation reflex normal Direct Ophthalmoscopy: normal light reflex Neck Neck: No lymphadenopathy Thyroid: Thyroid normal Chest Chest palpation & inspection: normal inspection of the chest Resp Effort & Inspection: normal respiratory effort and no audible wheezes Auscultation: clear to auscultation bilaterally, no crackles, no wheezes and lung sounds not diminished Cardio Rate: regular rate Rhythm: regular rhythm Peripheral pulses: radial pulses present and dorsalis pedis present GI Other: declined rectal Palpation (GI): no masses Auscultation: normal bowel sounds and normoactive bowel sounds Rectal Exam - Male: Yes deferred Other: declined Back/Spine/Pelvis Back/spine/pelvis image: 2 1. 3 cm palpable mass - cystic in nature reassurnace Skin General skin exam: no rashes or lesions noted Rashes: no rashes Full body images: 2 1. 5 mm hyperpigmented moles on the R leg 2. 3. Neuro General: No confusion Cranial nerves: Yes Equal, round and reactive pupils present and Yes Normal hearing present Cognition (Neuro): normal cognition Gait exam (Neuro): Normal gait present Motor exam (neuro): 5/5 motor strength present throughout Deep tendon reflexes (DTR's): Right brachioradialis reflex intensity grade: 2+, Left brachioradialis reflex intensity grade: 2+, Right patellar reflex intensity grade: 2+ and Left patellar reflex intensity grade: 2+ Extrem General: No edema Immunizations Boostrix Tdap 2.5 Lf unit-8 mcg-5 Lf/0.5 mL intramuscular syringe Performing Provider: Jocelyne Wakefield MD Performing Location: [facility] Administered by: Leticia Mcneil CMA on 02/20/25 17:11 2 Dose Route Admin Location Dispensed Lot Number Expiration Date NDC Tester Sound 0.5 mL IM Left Deltoid 0.5 mL [id number] 05/05/27 [id number] [employer] 2 Total Dispensed Waste 0.5 mL 0 % 2 VIS Given Date VIS Provided VIS Publication Date 02/20/25 Single Vaccine 21 Eligibility Eligibility Date Funding Source Not [facility] Eligible 02/20/25 Private Coding Level of Care Code Est Pt Prev Care 40-64y(41612) Diagnoses Annual physical exam Z00.00 VONNIE (obstructive sleep apnea) G47.33 History of total right knee replacement (TKR) Z96.651 Osteoarthritis of left knee M17.12 Renal cancer C64.9 Nephrolithiasis N20.0 Hepatic steatosis K76.0 Obesity (BMI 30-39.9) E66.9 Elevated cholesterol E78.00 HTN (hypertension) I10 Erectile dysfunction N52.9 Constipation K59.00 Assessment & Plan Assessment & Plan (1) Annual physical exam: Code(s): Z00.00 - Encounter for general adult medical examination without abnormal findings Category: Medical Plan: Patient is advised to eat healthy, keep well hydrated, keep active and have adequate sleep. (2) VONNIE (obstructive sleep apnea): Comment: UTILIZES CPAP Code(s): G47.33 - Obstructive sleep apnea (adult) (pediatric) Category: Medical Plan: Continue to use the CPAP more than 4 hours a night and benefits from this (3) History of total right knee replacement (TKR): Comment: 09/2018- Dr. Jorge Luis Veliz knee Code(s): Z96.651 - Presence of right artificial knee joint Category: Surgical Plan: Patient follows up with orthopedics (4) Osteoarthritis of left knee: Code(s): M17.12 - Unilateral primary osteoarthritis, left knee Category: Medical Plan: Patient was seen by orthopedics and planned x-ray (5) Renal cancer: Comment: April 2022left mass, biopsy: Clear cell renal cell carcinoma, Tenisha grade 2 CT 08/2022 Code(s): C64.9 - Malignant neoplasm of unspecified kidney, except renal pelvis Category: Medical Plan: Continue to follow-up with urology and ultrasound requested (6) Nephrolithiasis: Code(s): N20.0 - Calculus of kidney Category: Medical Plan: Ultrasound requested follows up with urology, keep well hydrated (7) Hepatic steatosis: Code(s): K76.0 - Fatty (change of) liver, not elsewhere classified Category: Medical Plan: Low-fat diet and exercise (8) Obesity (BMI 30-39.9): Code(s): E66.9 - Obesity, unspecified Category: Medical Plan: Diet and exercise (9) Elevated cholesterol: Code(s): E78.00 - Pure hypercholesterolemia, unspecified Category: Medical Plan: Avoid fried foods, chicken skin, eggs, butter margarine, pastries and meat. Be it pork or beef they have a lot of cholesterol LDL goal of less than 130 and triglyceride of less than 150 (10) HTN (hypertension): Code(s): I10 - Essential (primary) hypertension Category: Medical Plan: Continue with blood pressure medication. Decrease salt intake and exercise on amlodipine 10 mg once a day ear irbesartan 300 mg once a day and metoprolol 50 mg once a day (11) Erectile dysfunction: Code(s): N52.9 - Male erectile dysfunction, unspecified Category: Medical Plan: Prescription for medication sildenafil done and discussed about side effects (12) Constipation: Code(s): K59.00 - Constipation, unspecified Category: Medical Plan: Three rules for constipation 1. Diet need to have a high fiber diet less of meat 2. Increase oral fluids 3. Exercise Plan History of Present Illness The patient is a 59-year-old male presenting for an annual physical examination and management of chronic conditions. The patient has a history of obesity, with a recent 10-pound weight loss noted. He has a history of nephrolithiasis and kidney cancer, for which he underwent cryotherapy in April 2022. Follow-up with urology was conducted in December, and an ultrasound of the kidneys was advised. The patient has hepatic steatosis, identified on a CT scan in 2022, and hypercholesterolemia. He is on a low-fat diet and exercises regularly to manage these conditions. Hypertension is managed with amlodipine, irbesartan, and metoprolol. The patient also has obstructive sleep apnea, for which he uses CPAP therapy regularly, reporting benefits from its use. The patient underwent a right total knee arthroplasty in 2018 and follows up with orthopedics. He was advised to get the next x-ray of the knee, which showed no complications. Blood work conducted in November showed mild thrombocytopenia and elevated blood glucose levels. Liver function tests were mildly elevated, consistent with his known hepatic steatosis. The patient reports erectile dysfunction and inquires about medication options, which were discussed during the visit. He also experiences hemorrhoids, which flare up occasionally, and was advised on management strategies. 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 - Substance Use: Consumes alcohol occasionally, primarily beer on weekends - Exercise: Engages in regular physical activity - Diet: Follows a low-fat diet Review of Systems - General: Denies fever, dizziness, or nausea - Cardiovascular: Denies chest pain, dyspnea, or palpitations - Respiratory: Denies shortness of breath or cough - Gastrointestinal: Denies constipation, reports occasional hemorrhoid flare-ups - Genitourinary: Denies dysuria, reports erectile dysfunction - Neurological: Denies headaches or syncope - Musculoskeletal: Reports joint pain, particularly in the knees Physical Exam General: Cooperative, healthy appearing, comfortable, no acute distress, well developed, noted 10-pound weight loss Orientation: Patient oriented x3 Limitations: No limitations Head: Normal to inspection Ears: Hearing grossly normal bilaterally Nose: Normal external nose present Face and sinus: Normal facial exam Eyes: Appearance normal, both eyes and all related structures, last eye exam in 2021 Neck: Normal visual inspection and Yes full ROM Respiratory: Normal respiratory effort and able to speak in complete sentences. Clear to auscultation bilaterally Cardiovascular: Regular rate and rhythm. Normal S1 and S2 GI: Normal to inspection. Soft to palpation and nontender Skin: No rashes or lesions noted, noted three moles on left leg, advised to monitor for changes Neuro: Patient oriented x3 Extremities: Normal to inspection, noted swelling in legs, particularly right knee, status post right total knee arthroplasty 2018, advised to follow up with orthopedics Results - Labs: Mild thrombocytopenia, elevated blood glucose, mildly elevated liver function tests - Imaging: CT scan in 2022 showed hepatic steatosis Plan The patient will continue to manage obesity through a low-fat diet and regular exercise, which has already resulted in a 10-pound weight loss. Follow-up with urology is advised for kidney cancer surveillance, with an ultrasound of the kidneys recommended. Management of hepatic steatosis includes maintaining a low-fat diet and regular physical activity to prevent progression to cirrhosis. Hypertension is controlled with amlodipine, irbesartan, and metoprolol, and the patient is advised to continue these medications. For obstructive sleep apnea, the patient is encouraged to continue using CPAP therapy, which has been beneficial. The patient is advised to follow up with orthopedics for knee health, with an x-ray planned to monitor the status post right total knee arthroplasty. Blood glucose levels are elevated, and the patient is advised to monitor dietary intake and maintain regular exercise to prevent progression to diabetes. Erectile dysfunction was discussed, and medication options were considered, with a prescription provided as appropriate. For hemorrhoids, management includes dietary modifications, increased water intake, and the use of topical treatments as needed. The patient received a tetanus vaccination during the visit and was advised on the benefits of the shingles vaccine. Patient was informed and verbally consented to the use of an ambient scribe for clinic note documentation during this visit. Discussion Notes During the visit, we discussed the management of the patient's chronic conditions, including obesity, hypertension, and hepatic steatosis. We reviewed the importance of maintaining a low-fat diet and regular exercise to manage these conditions and prevent progression. The patient was advised to continue using CPAP therapy for obstructive sleep apnea and to follow up with urology for kidney cancer surveillance. We also discussed the management of erectile dysfunction, with medication options considered and a prescription provided. For hemorrhoids, we reviewed dietary modifications and topical treatments. The patient received a tetanus vaccination and was informed about the benefits of the shingles vaccine. Patient Instructions - Continue low-fat diet and regular exercise to manage weight and liver health. - Use CPAP machine nightly for sleep apnea. - Follow up with urology for kidney ultrasound. - Monitor blood glucose levels and maintain a healthy diet to prevent diabetes. - Use prescribed medication for erectile dysfunction as directed. - Manage hemorrhoids with dietary changes and topical treatments. - Consider getting the shingles vaccine at a pharmacy. - Return for follow-up appointments as scheduled. Orders: Orders 2 TDaP Immunization Today Z23 - Encounter for immunization Medications: New 2 sildenafil (Viagra) administer 30 minutes to 4 hours before activity 100 mg PO DAILY PRN 14 tabs 3RF sexual activity N52.9 - Male erectile dysfunction, unspecified
[2025-02-20 16:20] VITALS: BP 130/62; PULSE 57; TEMP 36.2; O2SAT 97; BMI 35.6
== END 2025-02-20 17:19 | disposition home or self-care (01) ==
LOC: HO.HMCH 16:01
PROVIDERS: PCP Internal Medicine; Visit Provider Internal Medicine
DX: Z00.00 Encounter for general adult medical examination without abnormal findings (principal); C64.9 Malignant neoplasm of unspecified kidney, except renal pelvis; Z68.35 Body mass index [BMI] 35.0-35.9, adult; M17.12 Unilateral primary osteoarthritis, left knee; G47.33 Obstructive sleep apnea (adult) (pediatric); Z96.651 Presence of right artificial knee joint; E66.9 Obesity, unspecified; N20.0 Calculus of kidney; E78.00 Pure hypercholesterolemia, unspecified; I10 Essential (primary) hypertension; N52.9 Male erectile dysfunction, unspecified; Z23 Encounter for immunization

== ENCOUNTER → 2025-02-20 16:00 | Outpatient (BNVA) | payer BC, SELFPAY | PROVIDERS: PCP Internal Medicine; Visit Provider Internal Medicine | DX: Z00.00 Encounter for general adult medical examination without abnormal findings (principal); G47.33 Obstructive sleep apnea (adult) (pediatric); M17.12 Unilateral primary osteoarthritis, left knee; C64.9 Malignant neoplasm of unspecified kidney, except renal pelvis; N20.0 Calculus of kidney; K76.0 Fatty (change of) liver, not elsewhere classified; E66.9 Obesity, unspecified; E78.00 Pure hypercholesterolemia, unspecified; I10 Essential (primary) hypertension; N52.9 Male erectile dysfunction, unspecified; D22.72 Melanocytic nevi of left lower limb, including hip; D22.71 Melanocytic nevi of right lower limb, including hip; L72.9 Follicular cyst of the skin and subcutaneous tissue, unspecified; K59.00 Constipation, unspecified; Z23 Encounter for immunization; Z96.651 Presence of right artificial knee joint | CPT/HCPCS: 90471; 90715; 96127 ==

== ENCOUNTER 2025-04-13 15:20 | Outpatient (REF) | payer OTHER, SELFPAY ==
--- NOTE | ~2025-04-13 | US_ITS ---
EXAMINATION: US RETROPERITONEAL LIMITED (RENAL ONLY) CLINICAL INFORMATION: Calculus of kidney. History of malignant neoplasm left kidney with ablation 05/08/2022. COMPARISON: 04/10/[address] abdomen and pelvis 08/13/2022. TECHNIQUE: Real-time imaging of the kidneys. FINDINGS: RIGHT KIDNEY: 13.3 x 4.9 x 7.3 cm (SAG x AP x TRV). The kidney is normal in size, contour, and echogenicity. Renal cortical thickness is normal. No calculi or suspicious focal parenchymal lesions. No hydronephrosis. There is a mid pole simple cyst measuring 1.3 x 1.6 x 1.3 cm. LEFT KIDNEY: 13.1 x 6.8 x 6.7 cm (SAG x AP x TRV). The kidney is normal in size, contour, and echogenicity. Renal cortical thickness is normal. No calculi. No hydronephrosis. In the midpole laterally, there is a lobular hypoechoic mass with vascularity measuring 2.7 x 1.9 x 1.3 cm. US/US renal BI IMPRESSION: 1. No definite renal calculi. No hydronephrosis. 2. Within the midpole left kidney laterally, there is a lobular hypoechoic mass with vascularity measuring 2.7 x 1.9 x 1.3 cm. Recurrence of the previously ablated neoplasm is a consideration. Recommend renal protocol MRI examination to further characterize and evaluate. Electronically signed by: Ty Warner MD 04/13/2025 04:06 PM EDT
--- OUTSIDE RECORDS SUMMARY | 2025-04-13 16:40 | XMS_ITS | Patient Health Record ---
Author Organization [facility] Address [address] [place] [address] Care Team Providers Care Night Auditor Name Role Phone Lee (RETIRED) Zaheer CARNES Primary Care Provide r Unavailable Maxi Hooker Unavailable [phone] Reason For Referral No Information Medications Medication [...] Problem Screening for malignant neoplasm of colon ([id number]) Encounter for screening for malignant neoplasm of colon (Z12.11) Active confirmed Problem Preprocedural examination ([id number]) Preprocedural examination (Z01.818) Active confirmed Plan Of Treatment Future Test Test Name Order Date COLONOSCOPY 06/27/2020 Insurance Providers Payer Name Payer Address Payer Phone Subscriber Number Group Number Insured Name Patient Relationship to Insured Coverage Start Date Coverage End Date [facility] [address] [place], [place] [id number] [phone] [id number] Self - patient is the insured Medical (General) History Medical History History ICD Code Hypertension Denies MT,DM,CVA,Lung disease,renal dise ase Neg colonoscopy in 1997 except for a hyp erplastic polyp Sleep apnea-uses CPAP Kidney stones Surgical History Surgery Date(Month/Year) Cholecystectomy Right knee replacement 2018 Dr. Kang
== END 2025-04-13 15:21 | disposition home or self-care (01) ==
LOC: HO.HMGCX 15:20
PROVIDERS: PCP Internal Medicine; Visit Provider Urology
DX: N20.0 Calculus of kidney (principal)
CPT/HCPCS: 76775

== ENCOUNTER → 2025-04-13 15:25 | Outpatient (BNV) | payer OTHER, SELFPAY | PROVIDERS: PCP Internal Medicine; Visit Provider Radiology Diagnostic Radiology | DX: N20.0 Calculus of kidney (principal) | CPT/HCPCS: 76775 ==

== ENCOUNTER 2025-04-19 13:32 | Outpatient (AMB) | payer BC, SELFPAY ==
--- NOTE | 2025-04-19 13:40 | A.OFFVIS_ITS ---
Intake Visit Reasons: 4m/US/[facility] Intake Note: Patient is present for 4 mo follow up Urology Medication:Sildenafil Antibiotic Allergy:NONE Blood Thinner:NONE Imaging done 04/13/25: ultrasound Labs done 04/07/25 : [facility] Practice Lead Required: No Accompanied by: Self / Same As Patient Allergies pollen Allergy (Unknown, Uncoded 02/20/25 16:20) Unknown HPI Comments Details: Michael is very pleasant male. He is a patient of Dr. Howard. 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 Right-sided renal cyst - 09/04 Ablation defect left kidney with no evidence of residual or recurrent disease. Therapy 05/03 cryotherapy Pathology - 05/03 renal cell carcinoma Zhao grade 2 Cr 12/04 0.92 Nephrolithiasis Ongoing with sporadic passage since 2009 Recent ER visit with marked pain on right side Imaging - 12/31 CT scan 3 mm distal right ureteric stone with associated mild hydroureteronephrosis, 4 mm lower pole stone on right Discussion regarding intervention [facility] Medical History (Updated 02/20/25 @ 16:52 by Jocelyne Wakefield MD) Kidney stones COVID-19 vaccine series completed HTN (hypertension) On beta princess at home Arthritis Nephrolithiasis VONNIE (obstructive sleep apnea) Elevated cholesterol Surgical History H/O arthroscopy of right knee Hx of colonoscopy S/P cholecystectomy History of total right knee replacement (TKR) Family History Mother Heart attack Father Heart attack Sister No problems noted. Sister No problems noted. Sister No problems noted. Son No problems noted. Son No problems noted. Daughter No problems noted. Social History (Updated 02/20/25 @ 16:24 by LU Zuniga) Housing: House Are you a primary neonatal intensive care unit nurse to a significant other at home: No Do you presently have visiting nurse or other home services: No Alcohol intake: current Alcohol intake frequency: a few times a week Comment: once aweek 2 drinks Patient Tobacco Use Status: Never used Tobacco Tobacco use type: Cigarette e-Cigarette/Vaping Use: Never Used Second Hand Smoke Exposure: No service: No Current occupational status: employed Current occupational exposures/hazards: No Cognitive needs: No Hearing needs: No Vision needs: Yes Review of Systems Const Denies chills and Denies fever(s) Card Reports no additional complaints and Denies syncope Resp Denies cough GI Denies abdominal pain and Denies heartburn Reports as per HPI and Denies change in libido Neuro Denies syncope Psych Denies change in libido Endo Denies change in libido Physical Exam Const General: cooperative, healthy appearing, comfortable and no acute distress Orientation/consciousness: patient oriented x3 HEENT Face and sinus: Yes normal facial exam Mouth: moist mucous membranes Neck Neck: Yes normal visual inspection, Yes full ROM and Yes trachea midline Chest Chest palpation & inspection: normal inspection of the chest Resp Effort & Inspection: normal respiratory effort, able to speak in complete sentences and no respiratory distress GI Inspection: Yes normal to inspection Back/Spine/Pelvis Cervical Spine: normal cervical lordosis Thoracic/Lumbar Spine: thoracic and lumbar spine normal to inspection Skin General skin exam: no rashes or lesions noted Neuro General: patient oriented x3, gait normal, tone normal and moves all extremities Extrem General: Yes normal to inspection and Yes capillary refill normal Assessment & Plan Assessment & Plan (1) Renal cancer: Comment: April 2022left mass, biopsy: Clear cell renal cell carcinoma, Tenisha grade 2 CT 08/2022 Code(s): C64.9 - Malignant neoplasm of unspecified kidney, except renal pelvis Category: Medical (2) Nephrolithiasis: Code(s): N20.0 - Calculus of kidney Category: Medical Plan Three-month follow-up imaging Orders: Orders MR abdomen wo/w con 3 Months C64.9 - Malignant neoplasm of unspecified kidney, except renal pelvis Patient Instructions: This note is constructed using voice recognition software. While every effort has been made to ensure accuracy bulk coolers installer errors may have been included. Imaging studies, laboratory and physical exam results were discussed and reviewed in detail. No major barriers to patient understanding were identified. An opportunity to ask questions regarding the treatment plan was provided. All questions were answered. The patient expressed understanding and agreement with the above treatment plan. The patient is aware they should contact our office by phone for worsening of their current condition or the appearance of new urologic symptoms. Compliance is encouraged with any medications and followup testing that is ordered. It is a privilege to participate in the urologic care of your patient. If you have any questions or concerns regarding treatment for the above conditions, or other urologic issues, please do not hesitate to contact me. The office telephone contact is [phone]. Sincerely, Dr Allen Yo MD, [facility] - Urology Compassionate Specialist Care for the Genitourinary System Coding Level of Care Code Est Pt Level 3 (54729) Complex EM visit Add On G2211 Diagnoses Renal cancer C64.9 Nephrolithiasis N20.0
== END 2025-04-19 14:19 | disposition home or self-care (01) ==
LOC: HO.HUSH 13:33
PROVIDERS: PCP Internal Medicine; Visit Provider Urology
DX: C64.9 Malignant neoplasm of unspecified kidney, except renal pelvis (principal); N20.0 Calculus of kidney
CPT/HCPCS: 99213